=== PATIENT | female | born 1950 | race Caucasian/White ===

== ENCOUNTER 2022-11-27 12:28 | Inpatient (IN) | payer MEDICARE, SELFPAY ==
--- NOTE | ~2022-11-27 | IR_ITS ---
PROCEDURE: PERMACATH PLACEMENT CLINICAL INFORMATION: Renal failure. COMPARISON: None available. TECHNIQUE: Procedure and risks and benefits including bleeding, infection and pneumothorax were discussed with the patient and informed consent was obtained. The right neck and chest and existing right neck temporary dialysis catheter were prepped and draped in usual sterile fashion. All elements of maximal sterile barrier technique followed including use of cap, mask, sterile gown, sterile gloves, a sterile full body drape and hand hygiene. Also followed skin preparation with 2% chlorhexidine for cutaneous antisepsis, and sterile ultrasound preparation with sterile gel and probe cover when applicable. The skin and soft tissues of the right upper chest were anesthetized with 1% lidocaine plain. A small incision was made. A subcutaneous tunnel from the chest to the neck incision was anesthetized with 1% lidocaine plain. Using a tunneler, a 14.5 Mauritian 19 cm in length GlidePath permacath was tunneled from the chest to the neck incision. An 0.035 guidewire was advanced through the existing temporary dialysis catheter into the SVC. Through a peel-away sheath, permacath was advanced centrally. Both ports had good blood return, flushed easily and were instilled with heparin 1.6 mL heparin 100 unit per mL solution. The neck incision was closed using a 3-0 subcuticular absorbable suture. Chest incision was closed using a 3-0 absorbable mattress suture. Conscious sedation was provided by a registered nurse under my direct supervision with 21 minute [id number] contact time. The patient received Versed 0.5 mg and Fentanyl 25 mcg intravenously during the procedure. TOTAL SEDATION TIME: 20 minutes FLUOROSCOPY TIME: 0.2 minutes SAVED FLUOROSCOPIC IMAGE: 1 DAP: 37 cGy-cm2 FINDINGS: There is a right internal jugular dialysis catheter with tip projecting over the cavoatrial junction. IR/IR cvc replace central tunnel IMPRESSION: Right internal jugular 14.5 Mauritian 19 cm in length GlidePath permacath placement.
--- NOTE | ~2022-11-27 | XR_ITS ---
EXAMINATION: XR CHEST CLINICAL INFORMATION: Shortness of breath COMPARISON: None available. TECHNIQUE: 2 views of the chest were obtained. FINDINGS: The cardiopericardial silhouette is enlarged. No evidence of pulmonary edema. There are small bilateral pleural effusions right greater than left. No pneumothorax. XR/XR chest 2V IMPRESSION: Small bilateral pleural effusions right greater than left. Cardiomegaly without pulmonary edema.
--- NOTE | ~2022-11-27 | IR_ITS ---
PROCEDURE: IR INSERTION OF CENTRAL VENOUS CATHETER IR ULTRASOUND-GUIDED VENOUS ACCESS CLINICAL INFORMATION: Renal failure. Permacath fell out. COMPARISON: None available. TECHNIQUE: The procedure, risks and benefits including bleeding, infection and pneumothorax were discussed with the patient and informed consent was obtained. The right neck was prepped and draped in the usual sterile fashion. The skin and soft tissues were anesthetized with 1% lidocaine plain. Using ultrasound guidance and a 5-Namibian micropuncture system, right internal jugular vein access was obtained. Over an .018 wire, a 5-Namibian dilator was positioned in the SVC. An .035 guidewire was advanced through the 5-Namibian dilator into the IVC. Following serial dilatation, a 12-Namibian 13 cm in length triple-lumen Mahurkar dialysis catheter was positioned. The catheter tip is in the SVC. Both ports flushed well, had good blood return and were instilled with heparin 1 mL 1000 unit per mL solution. The triple-lumen catheter was flushed with heparinized saline. Real-time ultrasound guidance was used to document vein patency and for needle entry. A formal ultrasound picture was recorded. 1 saved fluoroscopic image. Fluoroscopy time 0.7 minutes. All elements of maximal sterile barrier technique followed including use of cap, mask, sterile gown, sterile gloves, a sterile full body drape and hand hygiene. Also followed skin preparation with 2% chlorhexidine for cutaneous antisepsis, and sterile ultrasound preparation with sterile gel and probe cover when applicable. FINDINGS: There is a right upper extremity temporary dialysis catheter with tip projecting over the SVC. IR/IR us guide venous access IMPRESSION: Right internal jugular 12-Namibian 13 cm in length triple-lumen Mahurkar dialysis catheter placement.
--- NOTE | ~2022-11-27 | IR_ITS ---
PROCEDURE: IR INSERTION OF CENTRAL VENOUS CATHETER IR ULTRASOUND-GUIDED VENOUS ACCESS CLINICAL INFORMATION: Renal failure. Permacath fell out. COMPARISON: None available. TECHNIQUE: The procedure, risks and benefits including bleeding, infection and pneumothorax were discussed with the patient and informed consent was obtained. The right neck was prepped and draped in the usual sterile fashion. The skin and soft tissues were anesthetized with 1% lidocaine plain. Using ultrasound guidance and a 5-Spanish micropuncture system, right internal jugular vein access was obtained. Over an .018 wire, a 5-Spanish dilator was positioned in the SVC. An .035 guidewire was advanced through the 5-Spanish dilator into the IVC. Following serial dilatation, a 12-Spanish 13 cm in length triple-lumen Mahurkar dialysis catheter was positioned. The catheter tip is in the SVC. Both ports flushed well, had good blood return and were instilled with heparin 1 mL 1000 unit per mL solution. The triple-lumen catheter was flushed with heparinized saline. Real-time ultrasound guidance was used to document vein patency and for needle entry. A formal ultrasound picture was recorded. 1 saved fluoroscopic image. Fluoroscopy time 0.7 minutes. All elements of maximal sterile barrier technique followed including use of cap, mask, sterile gown, sterile gloves, a sterile full body drape and hand hygiene. Also followed skin preparation with 2% chlorhexidine for cutaneous antisepsis, and sterile ultrasound preparation with sterile gel and probe cover when applicable. FINDINGS: There is a right upper extremity temporary dialysis catheter with tip projecting over the SVC. IR/IR cvc insert non tunnel IMPRESSION: Right internal jugular 12-Spanish 13 cm in length triple-lumen Mahurkar dialysis catheter placement.
--- NOTE | 2022-11-27 12:59 | ED_ITS ---
HPI - General Adult General Chief complaint: General Medical Stated complaint: Port needs to be replaced Time Seen by Provider: 11/27/22 14:34 Source: patient and family (patient's daughter) Mode of arrival: wheelchair Limitations: no limitations History of Present Illness HPI narrative: Patient is a 72 year old assigned female at with a history of CKD, HTN, COPD, DM typ 2, and afib on Eliquis, presenting to the emergency department today after her dialysis catheter fell out. Patient states that her dialysis catheter on the right side of her chest fell out late last night, she went to [facility] and they discharged her home. Patient states that she she dialyzes Wednesday, Wednesday, and Wednesday at the dialysis center in [place]. Patient denies any dizziness, lightheadedness, abdominal pain, nausea, vomiting, fever, chills, blurry vision, double vision, loss of vision, chest pain, difficulty breathing, shortness of breath, back pain, night sweats, pain with urination, increased urinary frequency, increased urinary urgency, blood in her urine or stool, syncope or a near syncopal episode, recent trauma or falls, bowel incontinence, bladder incontinence, bowel retention, bladder retention, or any other complaints at this time. Onset (ago): hour(s) Relieving factors: none Exacerbating factors: none Associated symptoms: denies other symptoms Treatments prior to arrival: none Related Data Home Medications Medication Instructions Recorded Confirmed acetaminophen 325 mg tablet 650 mg PO Q4H PRN Pain 11/27/22 11/27/22 albuterol sulfate 2.5 mg/3 mL 2.5 mg inhalation Q6H PRN Wheezing 11/27/22 11/27/22 (0.083 %) solution for nebulization ammonium lactate 12 % topical cream 1 appl topical DAILY 11/27/22 11/27/22 apixaban 2.5 mg tablet (Eliquis) 2.5 mg PO BID 11/27/22 11/27/22 atorvastatin 80 mg tablet 80 mg PO DAILY 11/27/22 11/27/22 calcitriol 0.25 mcg capsule 0.25 mcg PO MOFR 11/27/22 11/27/22 cetirizine 10 mg tablet 10 mg PO DAILY 11/27/22 11/27/22 cholecalciferol (vitamin D3) 25 25 mcg PO DAILY 11/27/22 11/27/22 mcg (1,000 unit) tablet clotrimazole-betamethasone 1 1 appl topical BID PRN BREAST RASH 11/27/22 11/27/22 %-0.05 % topical cream diltiazem HCl 360 mg 360 mg PO DAILY 11/27/22 11/27/22 capsule,extended release 24 hr docusate sodium 100 mg capsule 100 mg PO DAILY 11/27/22 11/27/22 duloxetine 20 mg capsule,delayed 20 mg PO DAILY 11/27/22 11/27/22 release ferrous sulfate 325 mg (65 mg 325 mg PO BID 11/27/22 11/27/22 iron) tablet fluticasone fur. 200 mcg-umeclid 1 ea inhalation DAILY 11/27/22 11/27/22 62.5 mcg-vilant 25 mcg inhalat.powder (Trelegy Ellipta) fluticasone propionate 50 1 spray intranasal DAILY 11/27/22 11/27/22 mcg/actuation nasal spray,suspension furosemide 40 mg tablet 40 mg PO DAILY 11/27/22 11/27/22 furosemide 80 mg tablet 80 mg PO BID PRN WEIGHT GAIN 11/27/22 11/27/22 GREATER THAN 5 POUNDS, TAKE FOR 3 DAYS hydralazine 50 mg tablet 50 mg PO TID 11/27/22 11/27/22 insulin glargine 100 unit/mL (3 20 unit subcut BEDTIME 11/27/22 11/27/22 mL) subcutaneous pen ipratropium 0.5 mg-albuterol 3 mg 3 ml inhalation Q4H 11/27/22 11/27/22 (2.5 mg base)/3 mL nebulization soln metoprolol tartrate 25 mg tablet 25 mg PO BID 11/27/22 11/27/22 naphazoline-glycerin 0.012 %-0.25 1 drp ophthalmic (eye) BID PRN 11/27/22 11/27/22 % eye drops (Clear Eyes Redness REDNESS AND IRRITATION Relief) nystatin 100,000 unit/gram topical 1 appl topical BID-TID 11/27/22 11/27/22 powder sennosides 8.6 mg tablet (senna) 17.2 mg PO DAILY 11/27/22 11/27/22 sevelamer carbonate 800 mg tablet 800 mg PO TID 11/27/22 11/27/22 Allergies Allergy/AdvReac Type Severity Reaction Status Date / Time levofloxacin [From Levaquin] Allergy Anaphylaxis Verified 11/27/22 13:01 Review of Systems Constitutional: Constitutional: Reports no additional constitutional complaints, Denies chills, Denies fever(s) and Denies night sweats Eyes: Eyes: Reports no additional eye complaints, Denies blurry vision, Denies change in vision, Denies diplopia, Denies eye discharge, Denies loss of vision and Denies eye pain ENT: Denies dizziness Cardiovascular: Cardiovascular: Reports no additional cardiovascular complaints, Denies chest pain, Denies lightheadedness, Denies Loss of Consciousness and Denies dyspnea Respiratory: Respiratory: Reports no additional respiratory complaints and Denies dyspnea Gastrointestinal: Gastrointestinal: Reports no additional gastrointestinal complaints, Denies abdominal pain, Denies melena, Denies hematochezia, Denies change in bowel habits and Denies change in stool character Genitourinary: Genitourinary: Denies hematuria, Denies urinary frequency, Denies dysuria, Denies urinary incontinence, Denies urinary hesitancy and Denies urinary urgency Musculoskeletal: Musculoskeletal: Reports no additional musculoskeletal complaints, Denies numbness and Denies tingling Neurologic: Denies dizziness, Denies loss of vision, Denies numbness and Denies tingling Psychiatric: Psychiatric: Reports no additional psychiatric complaints Endocrine: Endocrine: Reports no additional endocrine complaints Hematologic/Lymphatic: Hematologic/Lymphatic: Reports no additional hematologic/lymphatic complaints Allergic/Immunologic: Allergic/Immunologic: Reports no additional allergic/immunologic complaints [facility] Past Medical History Attestation statement: The following information was validated with the patient. (all information validated with the patient's daughter) Source: old records reviewed, obtained from family (patient's daughter), nursing notes reviewed and other (notes from [facility] and assisted living facility reviewd) Social History Social History Advance Directives: No Advance Directives Information Provided: No Physical Exam ED Vital Signs: Vital Signs - 24 hr 11/27/22 13:02 Temperature 97.5 F Pulse Rate 59 Respiratory Rate 18 Blood Pressure 127/57 L Pulse Oximetry 97 BMI result Body Mass Index 34.7 Const General: cooperative, no acute distress, alert and awake Nutritional Appearance: well nourished Orientation/consciousness: patient oriented x3 Limitations: no limitations HENMT Head: Yes normal to inspection and Yes atraumatic Ears: hearing grossly normal bilaterally and external ears normal General nose exam: Normal external nose present, no nasal discharge noted and no epistaxis Face and sinus: Yes normal facial exam, No abrasion and No laceration Mouth: Normal oral and palatal mucosa present, no drooling and no muffled voice Eyes General: appearance normal, both eyes and all related structures Periorbital: periorbital findings normal Eyelids: Yes eyelids normal Conjunctivae: conjunctivae normal Pupils: Equal, round and reactive pupils present EOM: EOMs intact bilaterally Neck Neck: Yes normal visual inspection, Yes full ROM and Yes no lymphadenopathy Chest Other: bandaid present to the right chest, no dialysis catheter visualized Resp Effort & Inspection: normal respiratory effort and able to speak in complete sentences Cardio Rate: regular rate Rhythm: regular rhythm GI Inspection: Yes normal to inspection Neuro General: patient oriented x3 and moves all extremities Cranial nerves: Yes Equal, round and reactive pupils present Cognition (Neuro): normal cognition Motor exam (neuro): 5/5 motor strength present throughout Sensory Exam: Normal double simultaneous stimulation for sensation Coordination: [id number] test normal Extrem General: Yes normal to inspection, Yes full ROM and Yes capillary refill normal Psych Appearance: grossly normal Mental Status: mental status grossly normal Affect: normal affect Attitude: cooperative Thought process: Normal thought process present Thought content: Normal thought content present Insight: Good insight present (Psych) Course Course Course Narrative: RME performed by Cassandra Cabral PA-C. Patient is a 72 year old assigned female at presenting to the emergency department after a dialysis catheter fell out. Patient states that her dialysis catheter fell out last night, she was seen at [facility] last night, and they didn't put anything back in. Patient was supposed to dialyze today. Labs and imaging ordered. Patient placed back in the waiting room pending room availability and results. Medical Decision Making Medical Decision Making MDM Narrative: Patient is a 72 year old assigned female at presenting to the emergency department today for a dialysis catheter that fell out. Patient's physical exam showed a bandaid on the right chest where a dialysis catheter used to be. Patient's blood work was consistent with a chronic CKD patient. Patient's chest x-ray showed no acute process. I spoke to the patient's covering car distributor who recommended the patient have a replacement catheter placed and if it was temporary catheter, she would need to be admitted to the hospital and they would round on her. I spoke with the IR staff who informed me that they would be placing a temporary catheter only because the patient needs to be without Eliquis for 3 days. I spoke with the hospitalist team who agreed to admission. I explained my physical exam findings as well as all test results to the patient and the patient's daughter. I answered all questions asked by the patient and the patient's daughter. Patient and the patient's daughter verbalized agreement and understanding with this treatment plan and admission. Differential Diagnosis Differential Diagnoses: The differential diagnosis associated with the presentation includes dialysis catheter replacement Consult Healthcare Provider Management of the patient was discussed with: Hospitalist (agreed to admission) and Nurse Anesthetist (spoke with IR and nephrology as noted in the MDM portion of this chart) Lab Data [facility] Lab Attestation statement: I reviewed the patient's lab results. 11/27/22 15:41 11/27/22 15:41 Labs: Lab Results 11/27/22 11/27/22 11/27/22 Range/Units 15:41 15:41 15:41 WBC 6.3 (4.8-10.8) X10*3/uL RBC 3.53 L (4.20-5.50) X10*6/uL Hgb 10.4 L (12.0-16.0) g/dl Hct 32.7 L (37.0-47.0) % MCV 92.6 (80.0-98.0) fL MCH 29.5 (27.0-33.0) pg MCHC 31.8 (31.0-35.0) g/dl RDW 16.3 H (11.0-16.0) % Plt Count 155 L (160-400) X10*3/uL MPV 10.3 (9.4-12.3) fL Immature Gran % (Auto) 0.3 (0.0-0.4) % Neut % (Auto) 66.5 (45-73) % Lymph % (Auto) 14.2 L (20-40) % [place] % (Auto) 12.8 H (2-11) % Eos % (Auto) 4.8 H (0-4) % Baso % (Auto) 1.4 (0-2) % Lymph # (Auto) 0.9 L (1.2-4.9) X10*3/uL [place] # (Auto) 0.8 (0.1-1.2) X10*3/uL Eos # (Auto) 0.3 (0.0-0.4) X10*3/uL Baso # (Auto) 0.1 (0.0-0.2) X10*3/uL Abs Immat Gran (auto) 0.02 (0.00-0.03) X10*3/uL Absolute Neuts (auto) 4.2 (2.0-8.3) x10*3/uL Absolute Nucleated RBC 0.000 (0.0-0.012) X10*3/uL Nucleated RBC % (auto) 0.0 (0.0-0.2) /100WBC PT 12.3 (10.0-13.1) SEC INR 1.1 (0.9-1.1) APTT 37.7 H (26.0-36.4) SEC Sodium 139 (135-145) mmol/L Potassium 5.8 H (3.3-5.1) mmol/L Chloride 108 (96-108) mmol/L Carbon Dioxide 20 L (22-29) mmol/L Anion Gap 17 (12-20) BUN 66 H (9-16) mg/dL Creatinine 4.53 H* (0.5-1.4) mg/dL Estim Creat Clear Calc 11.1 Estimated GFR 9 Random Glucose 139 H (60-115) mg/dL Calcium 9.6 (8.4-10.2) mg/dL Magnesium 2.4 (1.6-2.6) mg/dL Total Bilirubin 0.7 (0.0-1.0) mg/dL AST 21 (5-31) U/L ALT 29 (0-31) U/L Alkaline Phosphatase 134 H (39-117) U/L Total Protein 6.1 L (6.5-8.0) g/dL Albumin 4.0 (3.5-5.0) g/dL Independent Interpretation I performed an independent interpretation of an: Plain X-Ray Interpretation: My interpretation is in agreement with the radiologist's impression of this imaging study. EXAMINATION: XR CHEST CLINICAL INFORMATION: Shortness of breath COMPARISON: None available. TECHNIQUE: 2 views of the chest were obtained. FINDINGS: The cardiopericardial silhouette is enlarged. No evidence of pulmonary edema. There are small bilateral pleural effusions right greater than left. No pneumothorax. XR/XR chest 2V IMPRESSION: Small bilateral pleural effusions right greater than left. ? Cardiomegaly without pulmonary edema. Dictated By: Duran Abernathy MD Signed By: Electronically signed by Duran Abernathy MD 11/27/22 6038 Independent Historian Clinical information obtained from an independent historian. History obtained from or confirmed by: Other (patient's daughter) Critical Care Time Critical Care Time Critical Care Time: Yes Total Critical Care Time: 45 Attestation: I spent 45 minutes of Critical Care Time with this patient. This does not include time spent on separately reported billable procedures. Discharge Plan Discharge Clinical Impression: Encounter for dialysis catheter care Patient Disposition: Admitted As Inpatient Prescriptions: No Action furosemide 40 mg tablet 40 mg PO DAILY atorvastatin 80 mg tablet 80 mg PO DAILY sennosides [senna] 8.6 mg tablet 17.2 mg PO DAILY albuterol sulfate 2.5 mg /3 mL (0.083 %) solution for nebulization 2.5 mg inhalation Q6H PRN (Reason: Wheezing) diltiazem HCl 360 mg capsule,extended release 24hr 360 mg PO DAILY hydralazine 50 mg tablet 50 mg PO TID nystatin 100,000 unit/gram powder 1 appl topical BID-TID fluticasone propionate 50 mcg/actuation spray,suspension 1 spray intranasal DAILY calcitriol 0.25 mcg capsule 0.25 mcg PO MOFR metoprolol tartrate 25 mg tablet 25 mg PO BID duloxetine 20 mg capsule,delayed release(DR/EC) 20 mg PO DAILY insulin glargine 100 unit/mL (3 mL) insulin pen 20 unit subcut BEDTIME sevelamer carbonate 800 mg tablet 800 mg PO TID Clear Eyes Redness Relief 0.012-0.25 % drops 1 drp ophthalmic (eye) BID PRN (Reason: REDNESS AND IRRITATION) Eliquis 2.5 mg tablet 2.5 mg PO BID Trelegy Ellipta 200-62.5-25 mcg blister with device 1 ea inhalation DAILY acetaminophen 325 mg Tablet 650 mg PO Q4H PRN (Reason: Pain) ipratropium-albuterol 0.5 mg-3 mg(2.5 mg base)/3 mL solution for nebulization 3 ml inhalation Q4H cetirizine 10 mg Tablet 10 mg PO DAILY furosemide 80 mg tablet 80 mg PO BID PRN (Reason: WEIGHT GAIN GREATER THAN 5 POUNDS, TAKE FOR 3 DAYS) ferrous sulfate 325 mg (65 mg iron) Tablet 325 mg PO BID clotrimazole-betamethasone 1-0.05 % cream 1 appl topical BID PRN (Reason: BREAST RASH) docusate sodium 100 mg Capsule 100 mg PO DAILY ammonium lactate 12 % Cream 1 appl TOPICAL DAILY cholecalciferol (vitamin D3) 25 mcg (1,000 unit) Tablet 25 mcg PO DAILY
[2022-11-27 13:02] VITALS: BP 127/57; PULSE 59; RESP 18; TEMP 36.4; O2SAT 97; BMI 34.7
[2022-11-27 15:46] LABS: MANUAL DIFF FLAG NO
[2022-11-27 15:48] LABS: Basophils Absolute Auto 0.1 X10*3/uL (0.0-0.2); Basophils Percent Auto 1.4 % (0-2); Eosinophils Absolute Auto 0.3 X10*3/uL (0.0-0.4); Eosinophils Percent Auto 4.8 % (0-4); Hematocrit 32.7 % (37.0-47.0); Hemoglobin 10.4 g/dl (12.0-16.0); Imm Gran Abs Auto 0.02 X10*3/uL (0.00-0.03); Imm Gran Pct Auto 0.3 % (0.0-0.4); Lymphocytes Absolute Auto 0.9 X10*3/uL (1.2-4.9); Lymphocytes Percent Auto 14.2 % (20-40); Mean Corpuscular HGB Conc 31.8 g/dl (31.0-35.0); Mean Corpuscular Hemoglobin 29.5 pg (27.0-33.0); Mean Corpuscular Volume 92.6 fL (80.0-98.0); Mean Platelet Volume 10.3 fL (9.4-12.3); Monocytes Absolute Auto 0.8 X10*3/uL (0.1-1.2); Monocytes Percent Auto 12.8 % (2-11); Neutrophils Absolute Auto 4.2 x10*3/uL (2.0-8.3); Neutrophils Percent Auto 66.5 % (45-73); Platelet Count 155 X10*3/uL (160-400); Red Blood Count 3.53 X10*6/uL (4.20-5.50); Red Cell Distribution Width 16.3 % (11.0-16.0); White Blood Count 6.3 X10*3/uL (4.8-10.8)
[2022-11-27 15:56] LABS: INTERNATIONAL NORM RATIO 1.1 (0.9-1.1); Prothrombin Time 12.3 SEC (10.0-13.1)
[2022-11-27 15:59] LABS: Partial Thromboplastin Time 37.7 SEC (26.0-36.4)
[2022-11-27 16:13] LABS: Alanine Aminotransferase 29 U/L (0-31); Alkaline Phosphatase 134 U/L (39-117); Anion Gap 17 (12-20); Aspartate Amino Transferase 21 U/L (5-31); Bilirubin Total 0.7 mg/dL (0.0-1.0); Blood Urea Nitrogen 66 mg/dL (9-16); Calcium 9.6 mg/dL (8.4-10.2); Carbon Dioxide 20 mmol/L (22-29); Chloride 108 mmol/L (96-108); Creatinine Clr Calc Pharmacy 11.1; Estimated Glomerular Filt Rate 9; Glucose Random 139 mg/dL (60-115); Magnesium 2.4 mg/dL (1.6-2.6); Potassium 5.8 mmol/L (3.3-5.1); Sodium 139 mmol/L (135-145); Total Protein 6.1 g/dL (6.5-8.0)
--- NOTE | 2022-11-27 16:38 | PHA.MEDREC ---
Pharmacy Consult ? Medication Reconciliation Pharmacy has completed the medication reconciliation. Patient knows nothing of what she takes, she has a nurse that comes to her house. Patient came with a list of medications. List was last printed on 09/15/22, I used pharmacy claims and the list to compile my reconciliation as it seems that new things have been prescribed since the list was printed.
--- NOTE | 2022-11-27 17:19 | PC.NURSE ---
Patient brought to IR in Xray at 1645 for temporary dialysis catheter placement. Patient ambulates with walker or cane at home. Patient denies any pain, sob with minimal exertion.
--- NOTE | 2022-11-27 19:13 | HO.RADPN ---
RADIOLOGY Narrative Narrative: RIJ 12 fr 13 cm length temporary triple lumen dialysis catheter placed. Tip in SVC. Heparin in both dialysis ports.
--- NOTE | 2022-11-27 20:00 | PM.IMHP ---
History of Present Illness Date of Service: 11/27/22 Chief Complaint: Replacement of dialysis catheter This is a 72-year-old female with pertinent history of ESRD on hemodialysis, essential hypertension, COPD, insulin-dependent diabetes mellitus, atrial fibrillation on Eliquis, mood disorder presents to the emergency department after her dialysis catheter fell out. Patient normally undergoes dialysis Wednesday/Wednesday/Wednesday but missed her dialysis session today as her dialysis catheter fell out last night. Patient denies any complaints at the time of my evaluation. No fever, chills, chest discomfort, palpitations, shortness of breath, changes in urinary or bowel habits. States she is compliant with medications and makes urine. The emergency department, Nephrology was consulted who recommended that patient have a replacement catheter placed. IR placed temporary catheter as patient was on Eliquis which needs to be washed out. Nephrology recommended admission and will dialyze the patient in a.m.. Review of Systems Constitutional: Constitutional: Reports no additional constitutional complaints Cardiovascular: Cardiovascular: Reports no additional cardiovascular complaints Respiratory: Respiratory: Reports no additional respiratory complaints Gastrointestinal: Gastrointestinal: Reports no additional gastrointestinal complaints Genitourinary: Genitourinary: Reports no additional female genitourinary complaints [facility] Medical History Afib COPD (chronic obstructive pulmonary disease) ESRD on hemodialysis Essential hypertension Mixed hyperlipidemia Mood disorder Pertinent family history: No family history of CAD Social History Advance Directives: No Advance Directives Information Provided: No Meds Allergies Allergy/AdvReac Type Severity Reaction Status Date / Time levofloxacin [From Levaquin] Allergy Anaphylaxis Verified 11/27/22 13:01 Active Medications: Current Medications Pharmacy Consult (Consult Rx Perform Med Rec) 1 each MISCELLANE ONCE PRN PRN Reason: Consult order Sodium Chloride (0.9 % Sodium Chloride Flush 3 Ml Syringe) 3 ml IVFLUSH [facility] Home Medications Medication Instructions Recorded Confirmed Last Taken Type acetaminophen 325 mg tablet 650 mg PO Q4H PRN Pain 11/27/22 11/27/22 Unknown History albuterol sulfate 2.5 mg/3 mL 2.5 mg inhalation Q6H PRN Wheezing 11/27/22 11/27/22 Unknown History (0.083 %) solution for nebulization ammonium lactate 12 % topical cream 1 appl topical DAILY 11/27/22 11/27/22 Unknown History apixaban 2.5 mg tablet (Eliquis) 2.5 mg PO BID 11/27/22 11/27/22 Unknown History atorvastatin 80 mg tablet 80 mg PO DAILY 11/27/22 11/27/22 Unknown History calcitriol 0.25 mcg capsule 0.25 mcg PO MOFR 11/27/22 11/27/22 Unknown History cetirizine 10 mg tablet 10 mg PO DAILY 11/27/22 11/27/22 Unknown History cholecalciferol (vitamin D3) 25 25 mcg PO DAILY 11/27/22 11/27/22 Unknown History mcg (1,000 unit) tablet clotrimazole-betamethasone 1 1 appl topical BID PRN BREAST RASH 11/27/22 11/27/22 Unknown History %-0.05 % topical cream diltiazem HCl 360 mg 360 mg PO DAILY 11/27/22 11/27/22 Unknown History capsule,extended release 24 hr docusate sodium 100 mg capsule 100 mg PO DAILY 11/27/22 11/27/22 Unknown History duloxetine 20 mg capsule,delayed 20 mg PO DAILY 11/27/22 11/27/22 Unknown History release ferrous sulfate 325 mg (65 mg 325 mg PO BID 11/27/22 11/27/22 Unknown History iron) tablet fluticasone fur. 200 mcg-umeclid 1 ea inhalation DAILY 11/27/22 11/27/22 Unknown History 62.5 mcg-vilant 25 mcg inhalat.powder (Trelegy Ellipta) fluticasone propionate 50 1 spray intranasal DAILY 11/27/22 11/27/22 Unknown History mcg/actuation nasal spray,suspension furosemide 40 mg tablet 40 mg PO DAILY 11/27/22 11/27/22 Unknown History furosemide 80 mg tablet 80 mg PO BID PRN WEIGHT GAIN 11/27/22 11/27/22 Unknown History GREATER THAN 5 POUNDS, TAKE FOR 3 DAYS hydralazine 50 mg tablet 50 mg PO TID 11/27/22 11/27/22 Unknown History insulin glargine 100 unit/mL (3 20 unit subcut BEDTIME 11/27/22 11/27/22 Unknown History mL) subcutaneous pen ipratropium 0.5 mg-albuterol 3 mg 3 ml inhalation Q4H 11/27/22 11/27/22 Unknown History (2.5 mg base)/3 mL nebulization soln metoprolol tartrate 25 mg tablet 25 mg PO BID 11/27/22 11/27/22 Unknown History naphazoline-glycerin 0.012 %-0.25 1 drp ophthalmic (eye) BID PRN 11/27/22 11/27/22 Unknown History % eye drops (Clear Eyes Redness REDNESS AND IRRITATION Relief) nystatin 100,000 unit/gram topical 1 appl topical BID-TID 11/27/22 11/27/22 Unknown History powder sennosides 8.6 mg tablet (senna) 17.2 mg PO DAILY 11/27/22 11/27/22 Unknown History sevelamer carbonate 800 mg tablet 800 mg PO TID 11/27/22 11/27/22 Unknown History Physical Exam Vital Signs and Narrative: Vital Signs: Last Vital Signs Temp 97.5 F 11/27/22 13:02 Pulse 59 11/27/22 13:02 Resp 18 11/27/22 13:02 BP 127/57 L 11/27/22 13:02 Pulse Ox 97 11/27/22 13:02 BMI result Body Mass Index 34.7 Middle-aged female lying in bed in no distress Neck supple, no JVD, temporary non-tunneled catheter Regular rate and rhythm, S1-S2 heard Decreased breath sounds at bases Abdomen soft nontender, no guarding, no rigidity Patient is awake, alert and oriented to self, place, time and person ; no focal motor deficit Psych: Normal mood No pedal edema Results Labs 11/27/22 15:41 11/27/22 15:41 Labs: Laboratory Results - last 24 hr 11/27/22 11/27/22 11/27/22 15:41 15:41 15:41 MCV 92.6 MCH 29.5 MCHC 31.8 RDW 16.3 H Plt Count 155 L MPV 10.3 Immature Gran % (Auto) 0.3 Neut % (Auto) 66.5 Lymph % (Auto) 14.2 L [place] % (Auto) 12.8 H Eos % (Auto) 4.8 H Baso % (Auto) 1.4 Lymph # (Auto) 0.9 L [place] # (Auto) 0.8 Eos # (Auto) 0.3 Baso # (Auto) 0.1 Abs Immat Gran (auto) 0.02 Absolute Neuts (auto) 4.2 Absolute Nucleated RBC 0.000 Nucleated RBC % (auto) 0.0 PT 12.3 INR 1.1 APTT 37.7 H Anion Gap 17 Estim Creat Clear Calc 11.1 Estimated GFR 9 Random Glucose 139 H Calcium 9.6 Magnesium 2.4 Total Bilirubin 0.7 AST 21 ALT 29 Alkaline Phosphatase 134 H Total Protein 6.1 L Albumin 4.0 Imaging Radiologist's Impressions: Impressions Chest X-Ray 11/27/22 13:14 IMPRESSION: Small bilateral pleural effusions right greater than left. Cardiomegaly without pulmonary edema. Assessment and Plan (1) Encounter for dialysis catheter care: Status: Acute Plan This is a 72-year-old female with pertinent history of ESRD on hemodialysis, essential hypertension, COPD, insulin-dependent diabetes mellitus, atrial fibrillation on Eliquis, mood disorder presents to the emergency department after her dialysis catheter fell out. #. Encounter for replacement of dialysis catheter: Nephrology was consulted from the ER who recommended admission. IR placed a temporary catheter as waiting for Eliquis washout. Patient missed her dialysis session today, consulting Nephrology for possible dialysis session tomorrow #. Hyperkalemia as she missed hemodialysis session: Temporizing measures given in the ER. Also ordered IV Lasix and Lokelma. #. Anemia of chronic kidney disease #. Hyperparathyroidism due to kidney disease: Continue calcitriol and sevelamer #. COPD: Not on home oxygen. No exacerbation during admission. Continue home inhalers #. Essential hypertension: Continue home antihypertensives #. Atrial fibrillation: Continue beta-indira. Holding Eliquis for permanent catheter placement #. Insulin-dependent diabetes mellitus: Reduce home basal regimen, initiating Accu-Cheks sliding scale insulin #. Mood disorder: Continue Cymbalta DVT prophylaxis: Mechanical. Holding Eliquis Low-salt diet Full code Admit as inpatient for hemodialysis session tomorrow. Will likely stay for 2 midnights for Eliquis washout and placement of permanent dialysis catheter Time Spent With Patient Time: Total time managing care of this patient today ____ minutes. Quality Stroke Does the patient have a stroke diagnosis?: No VTE Prior VTE?: No VTE Risk Level:: Medical - moderate - high VTE Device Contraindication: N/A - Device Ordered VTE Drug Contraindication: Treatment Not Indicated
--- NOTE | 2022-11-27 20:30 | PC.NURSE ---
assumed care of pt aox3 no apparent distress, no respiratory distress resting quietly line flushed -patent
[2022-11-27] MEDS: Furosemide 100 MG/10 ML VIAL 80 MG IVPUSH (20:56)
[2022-11-27 20:57] VITALS: BP 143/68
[2022-11-27] MEDS: hydrALAZINE HCl 50 MG TABLET PO (20:58)
[2022-11-27] MEDS: Metoprolol Tartrate 25 MG TABLET PO (20:58)
[2022-11-27] MEDS: Ferrous Sulfate 324 MG TABLET.DR PO (20:58)
[2022-11-27 21:26] VITALS: BP 93/57; PULSE 57; RESP 16; TEMP 36.6; O2SAT 100
[2022-11-27 21:36] LABS: Glucose, Whole Blood 122 mg/dL (60-115)
--- NOTE | 2022-11-27 21:57 | MHC.EDTECH ---
PT WAS ASSISTED TO WALK TO BATHROOM WITH WALKER ,VOID THEN BACK TO BED .
[2022-11-27] MEDS: Calcium Gluconate/NaCl,Iso-Osm 2 GM/100 ML PLAST..BAG IV (22:29)
[2022-11-27] MEDS: Sodium Zirconium Cyclosilicate 5 GM POWD.PACK PO (22:34)
[2022-11-27] MEDS: Insulin Glargine,Hum.rec.anlog 100 UNIT/ML 10 ML VIAL 15 UNIT SUBCUT (22:55)
[2022-11-27] MEDS: Albuterol/Iprat 2.5/0.5MG 3 ML AMPUL.NEB INHALE (23:01)
[2022-11-27 23:02] VITALS: PULSE 55; RESP 17; O2SAT 96
--- NOTE | 2022-11-27 23:23 | PC.NURSE ---
no respiratory distress resting quietly
[2022-11-27] MEDS: Sevelamer Carbonate Tablet 800 MG TABLET PO (23:46)
[2022-11-27] MEDS: calcitrioL 0.25 MCG CAPSULE PO (23:46)
[2022-11-27] MEDS: 0.9 % Sodium Chloride Flush 3 ML SYRINGE IVFLUSH (23:48)
[2022-11-27] MEDS: Melatonin 3 MG TABLET 6 MG PO (23:53)
[2022-11-27] MEDS: Acetaminophen 325 MG TABLET 650 MG PO (23:54)
[2022-11-27 23:59] VITALS: BP 148/63; PULSE 64; RESP 16; TEMP 36.5; O2SAT 100
[2022-11-28] VITALS (9 sets, daily range): BP systolic 126–168; BP diastolic 60–74; PULSE 51–77; RESP 17–28; TEMP 36–36.7; O2SAT 95–100
--- NOTE | 2022-11-28 00:03 | MHC.EDTECH ---
0000 ROUNDING AND VITALS SIGN TAKEN ,PT WAS BOOSTED UP IN BED ,PT RESTING QUIETLY IN BED .
--- NOTE | 2022-11-28 02:19 | MHC.EDTECH ---
pt up to bedside commode void then back to bed .
[2022-11-28] MEDS: Albuterol/Iprat 2.5/0.5MG 3 ML AMPUL.NEB INHALE ×4 (03:42→18:47)
[2022-11-28 07:39] LABS: Glucose, Whole Blood 132 mg/dL (60-115)
[2022-11-28 07:47] LABS: MANUAL DIFF FLAG NO
[2022-11-28 07:53] LABS: Basophils Absolute Auto 0.1 X10*3/uL (0.0-0.2); Basophils Percent Auto 1.1 % (0-2); Eosinophils Absolute Auto 0.2 X10*3/uL (0.0-0.4); Eosinophils Percent Auto 4.2 % (0-4); Hematocrit 32.4 % (37.0-47.0); Hemoglobin 10.4 g/dl (12.0-16.0); Imm Gran Abs Auto 0.02 X10*3/uL (0.00-0.03); Imm Gran Pct Auto 0.4 % (0.0-0.4); Lymphocytes Absolute Auto 0.8 X10*3/uL (1.2-4.9); Lymphocytes Percent Auto 14.3 % (20-40); Mean Corpuscular HGB Conc 32.1 g/dl (31.0-35.0); Mean Corpuscular Hemoglobin 29.7 pg (27.0-33.0); Mean Corpuscular Volume 92.6 fL (80.0-98.0); Mean Platelet Volume 10.4 fL (9.4-12.3); Monocytes Absolute Auto 0.6 X10*3/uL (0.1-1.2); Monocytes Percent Auto 10.6 % (2-11); Neutrophils Absolute Auto 3.8 x10*3/uL (2.0-8.3); Neutrophils Percent Auto 69.4 % (45-73); Platelet Count 132 X10*3/uL (160-400); Red Cell Distribution Width 16.2 % (11.0-16.0); White Blood Count 5.5 X10*3/uL (4.8-10.8)
[2022-11-28 08:21] LABS: Anion Gap 17 (12-20); Blood Urea Nitrogen 67 mg/dL (9-16); Calcium 9.6 mg/dL (8.4-10.2); Carbon Dioxide 17 mmol/L (22-29); Chloride 110 mmol/L (96-108); Creatinine Clr Calc Pharmacy 10.7; Estimated Glomerular Filt Rate 9; Glucose Random 127 mg/dL (60-115); Potassium 5.3 mmol/L (3.3-5.1); Sodium 139 mmol/L (135-145)
[2022-11-28] MEDS: hydrALAZINE HCl 50 MG TABLET PO ×3 (08:38→20:30)
[2022-11-28] MEDS: Ferrous Sulfate 324 MG TABLET.DR PO ×2 (08:38→20:30)
[2022-11-28] MEDS: Atorvastatin Calcium 80 MG TABLET PO (08:38)
[2022-11-28] MEDS: DULoxetine HCl 20 MG CAPSULE.DR PO (08:38)
[2022-11-28] MEDS: dilTIAZem HCL CD 180 MG CAP.ER.24H 360 MG PO (08:38)
[2022-11-28] MEDS: 0.9 % Sodium Chloride Flush 3 ML SYRINGE IVFLUSH ×3 (08:39→20:31)
[2022-11-28] MEDS: Metoprolol Tartrate 25 MG TABLET PO ×2 (08:39→20:30)
[2022-11-28] MEDS: Cholecalciferol (Vitamin D3) 25 MCG TABLET PO (08:39)
[2022-11-28] MEDS: Loratadine 10 MG TABLET PO (08:39)
[2022-11-28] MEDS: Docusate Sodium 100 MG CAPSULE PO (08:42)
[2022-11-28] MEDS: Furosemide 40 MG TABLET PO (08:51)
[2022-11-28] MEDS: Sennosides 8.6 MG TABLET 17.2 MG PO (08:52)
[2022-11-28] MEDS: Sevelamer Carbonate Tablet 800 MG TABLET PO ×3 (08:52→20:30)
--- NOTE | 2022-11-28 10:49 | MHC.CM.PN ---
pt from [facility] pt goes to [facility] mon wed and wed via [facility] transportion dc plan to resume same
--- NOTE | 2022-11-28 15:39 | P.PNIM_ITS ---
Subjective Subjective Date of Service: 11/28/22 Interval History: No acute issues with temporary catheter; HD today without issue Review of Systems Denies chest pain Denies shortness of breath Denies nausea vomiting diarrhea Denies fever chills Physical Exam Vital Signs: Vital Signs: Last Vital Signs Temp 96.8 F 11/28/22 07:20 Pulse 75 11/28/22 08:09 Resp 20 11/28/22 08:09 BP 140/67 H 11/28/22 07:20 Pulse Ox 98 11/28/22 07:20 O2 Del Method Room Air 11/28/22 07:20 BMI result Body Mass Index 34.7 Const: Other: Awake alert no acute distress Neck: Other: Right-sided temporary HD catheter site clean dry and intact Resp: Other: Clear to auscultation bilaterally no rales rhonchi or wheezes Cardio: Other: No S4; positive S1-S2; no S3 murmurs rubs or gallops GI: Other: Soft nontender nondistended normoactive bowel sounds Extrem: Other: No edema bilaterally Objective Data Active Medications Acetaminophen (Acetaminophen 325 Mg Tablet) 650 mg PO Q6H PRN PRN Reason: Pain, Mild (Pain Scale 1-3) Last Admin: 11/27/22 23:54 Dose: 650 mg Documented By: ARLYN Albuterol Sulfate (Albuterol Sulfate (0.083%) 2.5 Mg/3 Ml Vial.Neb) 2.5 mg INHALE RQ6H PRN PRN Reason: Wheezing Albuterol/Ipratropium (Albuterol/Iprat 2.5/0.5mg 3 Ml Ampul.Neb) 3 ml INHALE RQ4H [facility] Last Admin: 11/28/22 15:38 Dose: 3 ml Documented By: MONIE Artificial Tears (Artificial Tears 15 Ml Drops) 1 drop EYE-BOTH BID PRN PRN Reason: REDNESS AND IRRITATION Atorvastatin Calcium (Atorvastatin Calcium 80 Mg Tablet) 80 mg PO DAILY [facility] Last Admin: 11/28/22 08:38 Dose: 80 mg Documented By: ALOK Calcitriol (Calcitriol 0.25 Mcg Capsule) 0.25 mcg PO MOFR [facility] Last Admin: 11/27/22 23:46 Dose: 0.25 mcg Documented By: ARLYN Clotrimazole (Clotrimazole 1 % Cream 15 Gm Tube) 1 appl TOPICAL BID PRN PRN Reason: BREAST RASH Diltiazem HCl (Diltiazem Hcl Cd 180 Mg Cap.Er.24h) 360 mg PO DAILY [facility]; Protocol Last Admin: 11/28/22 08:38 Dose: 360 mg Documented By: ALOK Docusate Sodium (Docusate Sodium 100 Mg Capsule) 100 mg PO DAILY [facility] Last Admin: 11/28/22 08:42 Dose: 100 mg Documented By: ALOK Duloxetine HCl (Duloxetine Hcl 20 Mg Capsule.) 20 mg PO DAILY [facility] Last Admin: 11/28/22 08:38 Dose: 20 mg Documented By: ALOK Ferrous Sulfate (Ferrous Sulfate 324 Mg Tablet.) 324 mg PO BID [facility] Last Admin: 11/28/22 08:38 Dose: 324 mg Documented By: ALOK Fluticasone Propionate (Fluticasone Propionate Nasal 16 Gm [place]) 1 spray NOSTRIL-B DAILY [facility] Last Admin: 11/28/22 10:20 Dose: Not Given Documented By: ALOK Non-Admin Reason: Off unit: Dialysis Fluticasone/Vilanterol (Fluticasone/Vilanterol 200/25 Blst.W.Dev) 1 puff INHALE RDAILY [facility] Last Admin: 11/28/22 10:21 Dose: Not Given Documented By: ALOK Non-Admin Reason: Off unit: Dialysis Furosemide (Furosemide 40 Mg Tablet) 40 mg PO DAILY [facility]; Protocol Last Admin: 11/28/22 08:51 Dose: 40 mg Documented By: ALOK Glucose (Glucose Gel 15 Gm Gel..Gram.) 15 gm PO Q15M PRN; Protocol PRN Reason: per Hypoglycemia Standing Ord. Hydralazine HCl (Hydralazine Hcl 50 Mg Tablet) 50 mg PO TID [facility]; Protocol Last Admin: 11/28/22 08:38 Dose: 50 mg Documented By: ALOK Dextrose (D10) 250 mls @ 750 mls/hr IV Q15M PRN; Protocol PRN Reason: per Hypoglycemia Standing Ord. Insulin Glargine (Insulin Glargine,Hum.Rec.Anlog 100 Unit/Ml 10 Ml Vial) 15 unit SUBCUT BEDTIME [facility] Last Admin: 11/27/22 22:55 Dose: 15 unit Documented By: MARSHALL Insulin Human Lispro (Insulin Lispro 100 Unit/Ml 3 Ml Vial) 0 unit SUBCUT QIDACHS [facility]; Protocol Last Admin: 11/28/22 11:42 Dose: Not Given Documented By: ALOK Non-Admin Reason: Off unit: Dialysis Lactic Acid (Ammonium Lactate 12 % Cream 140 Gm Tube) 1 appl TOPICAL DAILY [facility]; Protocol Last Admin: 11/28/22 10:20 Dose: Not Given Documented By: ALOK Non-Admin Reason: Off unit: Dialysis Loratadine (Loratadine 10 Mg Tablet) 10 mg PO DAILY [facility] Last Admin: 11/28/22 08:39 Dose: 10 mg Documented By: ALOK Melatonin (Melatonin 3 Mg Tablet) 6 mg PO BEDTIME PRN PRN Reason: Insomnia Last Admin: 11/27/22 23:53 Dose: 6 mg Documented By: ARLYN Metoprolol Tartrate (Metoprolol Tartrate 25 Mg Tablet) 25 mg PO BID [facility]; Protocol Last Admin: 11/28/22 08:39 Dose: 25 mg Documented By: ALOK Nystatin (Nystatin Powder 15 Gm Bottle) 1 appl TOPICAL TID [facility]; Protocol Last Admin: 11/28/22 10:21 Dose: Not Given Documented By: ALOK Non-Rhea Reason: Off unit: Dialysis Ondansetron HCl (Ondansetron Hcl 4 Mg/2 Ml Vial) 4 mg IVPUSH Q8H PRN PRN Reason: Nausea and Vomiting Pharmacy Consult (Consult Rx Perform Med Rec) 1 each MISCELLANE ONCE PRN PRN Reason: Consult order Senna (Sennosides 8.6 Mg Tablet) 17.2 mg PO DAILY [facility] Last Admin: 11/28/22 08:52 Dose: 17.2 mg Documented By: ALOK Sevelamer Carbonate (Sevelamer Carbonate Tablet 800 Mg Tablet) 800 mg PO TID [facility] Last Admin: 11/28/22 08:52 Dose: 800 mg Documented By: ALOK Sodium Chloride (0.9 % Sodium Chloride Flush 3 Ml Syringe) [facility] Last Admin: 11/28/22 08:39 Dose: 3 ml Documented By: ALOK Tiotropium [place] (Tiotropium [place] 18 Mcg Cap.W.Dev) 1 puff INHALE RDAILY [facility] Last Admin: 11/28/22 10:20 Dose: Not Given Documented By: ALOK Non-Admin Reason: Off unit: Dialysis Vitamin D (Cholecalciferol (Vitamin D3) 25 Mcg Tablet) 25 mcg PO DAILY [facility] Last Admin: 11/28/22 08:39 Dose: 25 mcg Documented By: ALOK Labs 11/28/22 07:28 11/28/22 06:55 Labs: Laboratory Results - last 24 hr 11/27/22 11/27/22 11/27/22 15:41 15:41 15:41 MCV 92.6 MCH 29.5 MCHC 31.8 RDW 16.3 H Plt Count 155 L MPV 10.3 Immature Gran % (Auto) 0.3 Neut % (Auto) 66.5 Lymph % (Auto) 14.2 L [place] % (Auto) 12.8 H Eos % (Auto) 4.8 H Baso % (Auto) 1.4 Lymph # (Auto) 0.9 L [place] # (Auto) 0.8 Eos # (Auto) 0.3 Baso # (Auto) 0.1 Abs Immat Gran (auto) 0.02 Absolute Neuts (auto) 4.2 Absolute Nucleated RBC 0.000 Nucleated RBC % (auto) 0.0 PT 12.3 INR 1.1 APTT 37.7 H Anion Gap 17 Estim Creat Clear Calc 11.1 Estimated GFR 9 POC Glucose Random Glucose 139 H Calcium 9.6 Magnesium 2.4 Total Bilirubin 0.7 AST 21 ALT 29 Alkaline Phosphatase 134 H Total Protein 6.1 L Albumin 4.0 11/27/22 11/28/22 11/28/22 21:21 06:55 07:20 MCV MCH MCHC RDW Plt Count MPV Immature Gran % (Auto) Neut % (Auto) Lymph % (Auto) [place] % (Auto) Eos % (Auto) Baso % (Auto) Lymph # (Auto) [place] # (Auto) Eos # (Auto) Baso # (Auto) Abs Immat Gran (auto) Absolute Neuts (auto) Absolute Nucleated RBC Nucleated RBC % (auto) PT INR APTT Anion Gap 17 Estim Creat Clear Calc 10.7 Estimated GFR 9 POC Glucose 122 H 132 H Random Glucose 127 H Calcium 9.6 Magnesium Total Bilirubin AST ALT Alkaline Phosphatase Total Protein Albumin 11/28/22 07:28 MCV 92.6 MCH 29.7 MCHC 32.1 RDW 16.2 H Plt Count 132 L MPV 10.4 Immature Gran % (Auto) 0.4 Neut % (Auto) 69.4 Lymph % (Auto) 14.3 L [place] % (Auto) 10.6 Eos % (Auto) 4.2 H Baso % (Auto) 1.1 Lymph # (Auto) 0.8 L [place] # (Auto) 0.6 Eos # (Auto) 0.2 Baso # (Auto) 0.1 Abs Immat Gran (auto) 0.02 Absolute Neuts (auto) 3.8 Absolute Nucleated RBC 0.000 Nucleated RBC % (auto) 0.0 PT INR APTT Anion Gap Estim Creat Clear Calc Estimated GFR POC Glucose Random Glucose Calcium Magnesium Total Bilirubin AST ALT Alkaline Phosphatase Total Protein Albumin Assessment and Plan (1) Encounter for dialysis catheter care: Status: Acute (2) Essential hypertension: Status: Acute (3) ESRD on hemodialysis: Status: Acute Plan This is a 72-year-old female with pertinent history of ESRD on hemodialysis, essential hypertension, COPD, insulin-dependent diabetes mellitus, atrial fibrillation on Eliquis, mood disorder presents to the emergency department after her dialysis catheter fell out. 1. Encounter for replacement of dialysis catheter -temporary cath placed by IR; HD without issues this a.m. -continue to hold Eliquis -tunneled cath 11/30/2022 in IR 2.Hyperkalemia -resolved with HD this morning -follow renals/divalents - HD 11/30(due) 3.ESRD on HD -continue calcitriol and sevelamer -as per Renal 4.Essential hypertension -acceptable control on current therapies -adjust as indicated 5.Atrial fibrillation -rate control adequate -continue to hold Eliquis depending tunneled catheter placement 6.Insulin-dependent diabetes mellitus -acceptable control on lispro correctional scale/basal insulin -adjust as indicated Boots Full code Patient will require ongoing hospitalization pending tunnel catheter placement on Wednesday. Cannot be discharge with temporary line Time Spent With Patient Time: Total time managing care of this patient today ____ minutes. Quality Stroke Does the patient have a stroke diagnosis?: No VTE Prior VTE?: No VTE Risk Level:: Medical - moderate - high VTE Device Contraindication: N/A - Device Ordered VTE Drug Contraindication: Treatment Not Indicated
[2022-11-28 17:05] LABS: Glucose, Whole Blood 110 mg/dL (60-115)
[2022-11-28 20:12] LABS: Glucose, Whole Blood 173 mg/dL (60-115)
[2022-11-28] MEDS: Insulin Glargine,Hum.rec.anlog 100 UNIT/ML 10 ML VIAL 15 UNIT SUBCUT (20:30)
[2022-11-28] MEDS: Nystatin Powder 15 GM BOTTLE 1 APPL TOPICAL (20:30)
[2022-11-28] MEDS: Insulin Lispro 100 UNIT/ML 3 ML VIAL SUBCUT (20:31)
[2022-11-29] VITALS (8 sets, daily range): BP systolic 118–134; BP diastolic 58–61; PULSE 47–65; RESP 16–22; TEMP 36.6–36.9; O2SAT 93–99
[2022-11-29] MEDS: Melatonin 3 MG TABLET 6 MG PO (01:22)
[2022-11-29] MEDS: Albuterol/Iprat 2.5/0.5MG 3 ML AMPUL.NEB INHALE ×4 (03:35→19:34)
[2022-11-29] MEDS: Acetaminophen 325 MG TABLET 650 MG PO (04:01)
[2022-11-29 07:10] LABS: COVID-19 Test Negative (Negative); IDNOW Serial# BCCEAD1C
[2022-11-29 07:32] LABS: Glucose, Whole Blood 97 mg/dL (60-115)
[2022-11-29] MEDS: 0.9 % Sodium Chloride Flush 3 ML SYRINGE IVFLUSH ×3 (08:33→20:45)
[2022-11-29] MEDS: dilTIAZem HCL CD 180 MG CAP.ER.24H 360 MG PO (08:33)
[2022-11-29] MEDS: Ferrous Sulfate 324 MG TABLET.DR PO ×2 (08:33→20:45)
[2022-11-29] MEDS: Sennosides 8.6 MG TABLET 17.2 MG PO (08:34)
[2022-11-29] MEDS: DULoxetine HCl 20 MG CAPSULE.DR PO (08:34)
[2022-11-29] MEDS: Cholecalciferol (Vitamin D3) 25 MCG TABLET PO (08:34)
[2022-11-29] MEDS: Docusate Sodium 100 MG CAPSULE PO (08:34)
[2022-11-29] MEDS: Loratadine 10 MG TABLET PO (08:35)
[2022-11-29] MEDS: Atorvastatin Calcium 80 MG TABLET PO (08:35)
[2022-11-29] MEDS: hydrALAZINE HCl 50 MG TABLET PO ×3 (08:35→20:45)
[2022-11-29] MEDS: Nystatin Powder 15 GM BOTTLE 1 APPL TOPICAL (08:35)
[2022-11-29] MEDS: Furosemide 40 MG TABLET PO (08:35)
[2022-11-29] MEDS: Sevelamer Carbonate Tablet 800 MG TABLET PO ×3 (08:35→20:45)
[2022-11-29] MEDS: Metoprolol Tartrate 25 MG TABLET PO ×2 (08:35→20:45)
[2022-11-29] MEDS: Ammonium Lactate 12 % Cream 140 GM TUBE 1 APPL TOPICAL (10:24)
[2022-11-29] MEDS: Fluticasone Propionate Nasal 16 GM SPRAY 1 SPRAY NOSTRIL-B (10:25)
[2022-11-29 11:34] LABS: Glucose, Whole Blood 183 mg/dL (60-115)
--- NOTE | 2022-11-29 11:58 | P.PNIM_ITS ---
Subjective Subjective Date of Service: 11/29/22 Interval History: Seen and evaluated this morning Feels little better after dialysis session Temp dialysis cath in place no other overnight events Review of Systems Review of Systems: Yes all other systems are reviewed and are negative Physical Exam Vital Signs: Vital Signs: Last Vital Signs Temp 97.8 F 11/29/22 07:26 Pulse 63 11/29/22 08:31 Resp 16 11/29/22 07:44 BP 134/61 11/29/22 07:26 Pulse Ox 99 11/29/22 07:26 O2 Del Method Nasal Cannula 11/29/22 07:26 O2 Flow Rate 2 11/29/22 07:26 BMI result Body Mass Index 34.7 Const: Other: Constitutional : Awake, interactive, not in distress Neck : Normal inspection, Supple, temp dialysis cath in place with no erythema or tenderness Cardiovascular : RRR, no JVP, trace lower extremity edema Respiratory : good bilateral air entry, no crackles, wheezes or rhonchi Gastrointestinal: soft, lax, Normal bowel sounds, Non tender Skin : Warm, Dry Neurological : Alert & oriented x3, No focal deficit Objective Data Active Medications Acetaminophen (Acetaminophen 325 Mg Tablet) 650 mg PO Q6H PRN PRN Reason: Pain, Mild (Pain Scale 1-3) Last Admin: 11/29/22 04:01 Dose: 650 mg Documented By: MARINO Albuterol Sulfate (Albuterol Sulfate (0.083%) 2.5 Mg/3 Ml Vial.Neb) 2.5 mg INHALE RQ6H PRN PRN Reason: Wheezing Albuterol/Ipratropium (Albuterol/Iprat 2.5/0.5mg 3 Ml Ampul.Neb) 3 ml INHALE RQ4H [facility] Last Admin: 11/29/22 11:24 Dose: Not Given Documented By: MONIE Non-Admin Reason: Patient Asleep Artificial Tears (Artificial Tears 15 Ml Drops) 1 drop EYE-BOTH BID PRN PRN Reason: REDNESS AND IRRITATION Atorvastatin Calcium (Atorvastatin Calcium 80 Mg Tablet) 80 mg PO DAILY [facility] Last Admin: 11/29/22 08:35 Dose: 80 mg Documented By: DMITRI Calcitriol (Calcitriol 0.25 Mcg Capsule) 0.25 mcg PO MOFR [facility] Last Admin: 11/27/22 23:46 Dose: 0.25 mcg Documented By: ARLYN Clotrimazole (Clotrimazole 1 % Cream 15 Gm Tube) 1 appl TOPICAL BID PRN PRN Reason: BREAST RASH Diltiazem HCl (Diltiazem Hcl Cd 180 Mg Cap.Er.24h) 360 mg PO DAILY [facility]; Protocol Last Admin: 11/29/22 08:33 Dose: 360 mg Documented By: DMITRI Docusate Sodium (Docusate Sodium 100 Mg Capsule) 100 mg PO DAILY [facility] Last Admin: 11/29/22 08:34 Dose: 100 mg Documented By: DMITRI Duloxetine HCl (Duloxetine Hcl 20 Mg Capsule.) 20 mg PO DAILY [facility] Last Admin: 11/29/22 08:34 Dose: 20 mg Documented By: DMITRI Ferrous Sulfate (Ferrous Sulfate 324 Mg Tablet.) 324 mg PO BID [facility] Last Admin: 11/29/22 08:33 Dose: 324 mg Documented By: DMITRI Fluticasone Propionate (Fluticasone Propionate Nasal 16 Gm [place]) 1 spray NOS TRIL-B DAILY [facility] Last Admin: 11/29/22 10:25 Dose: 1 spray Documented By: DMITRI Fluticasone/Vilanterol (Fluticasone/Vilanterol 200/25 Blst.W.Dev) 1 puff INHALE RDAILY [facility] Last Admin: 11/29/22 11:23 Dose: Not Given Documented By: MONIE Non-Admin Reason: Med Not Available Furosemide (Furosemide 40 Mg Tablet) 40 mg PO DAILY [facility]; Protocol Last Admin: 11/29/22 08:35 Dose: 40 mg Documented By: DMITRI Glucose (Glucose Gel 15 Gm Gel..Gram.) 15 gm PO Q15M PRN; Protocol PRN Reason: per Hypoglycemia Standing Ord. Hydralazine HCl (Hydralazine Hcl 50 Mg Tablet) 50 mg PO TID [facility]; Protocol Last Admin: 11/29/22 08:35 Dose: 50 mg Documented By: DMITRI Dextrose (D10) 250 mls @ 750 mls/hr IV Q15M PRN; Protocol PRN Reason: per Hypoglycemia Standing Ord. Insulin Glargine (Insulin Glargine,Hum.Rec.Anlog 100 Unit/Ml 10 Ml Vial) 15 unit SUBCUT BEDTIME [facility] Last Admin: 11/28/22 20:30 Dose: 15 unit Documented By: MARINO Insulin Human Lispro (Insulin Lispro 100 Unit/Ml 3 Ml Vial) 0 unit SUBCUT QIDACHS [facility]; Protocol Last Admin: 11/29/22 11:56 Dose: Not Given Documented By: DMITRI Non-Admin Reason: Patient Refused Lactic Acid (Ammonium Lactate 12 % Cream 140 Gm Tube) 1 appl TOPICAL DAILY [facility]; Protocol Last Admin: 11/29/22 10:24 Dose: 1 appl Documented By: DMITRI Loratadine (Loratadine 10 Mg Tablet) 10 mg PO DAILY [facility] Last Admin: 11/29/22 08:35 Dose: 10 mg Documented By: DMITRI Melatonin (Melatonin 3 Mg Tablet) 6 mg PO BEDTIME PRN PRN Reason: Insomnia Last Admin: 11/29/22 01:22 Dose: 6 mg Documented By: MARINO Metoprolol Tartrate (Metoprolol Tartrate 25 Mg Tablet) 25 mg PO BID [facility]; Protocol Last Admin: 11/29/22 08:35 Dose: 25 mg Documented By: DMITRI Nystatin (Nystatin Powder 15 Gm Bottle) 1 appl TOPICAL TID [facility]; Protocol Last Admin: 11/29/22 08:35 Dose: 1 appl Documented By: DMITRI Ondansetron HCl (Ondansetron Hcl 4 Mg/2 Ml Vial) 4 mg IVPUSH Q8H PRN PRN Reason: Nausea and Vomiting Pharmacy Consult (Consult Rx Perform Med Rec) 1 each MISCELLANE ONCE PRN PRN Reason: Consult order Senna (Sennosides 8.6 Mg Tablet) 17.2 mg PO DAILY [facility] Last Admin: 11/29/22 08:34 Dose: 17.2 mg Documented By: DMITRI Sevelamer Carbonate (Sevelamer Carbonate Tablet 800 Mg Tablet) 800 mg PO TID [facility] Last Admin: 11/29/22 08:35 Dose: 800 mg Documented By: DMITRI Sodium Chloride (0.9 % Sodium Chloride Flush 3 Ml Syringe) 3 ml IVFLUSH QSHIFT [facility] Last Admin: 11/29/22 08:33 Dose: 3 ml Documented By: DMITRI Tiotropium [place] (Tiotropium [place] 18 Mcg Cap.W.Dev) 1 puff INHALE RDAILY [facility] Last Admin: 11/29/22 07:42 Dose: 1 puff Documented By: MONIE Vitamin D (Cholecalciferol (Vitamin D3) 25 Mcg Tablet) 25 mcg PO DAILY [facility] Last Admin: 11/29/22 08:34 Dose: 25 mcg Documented By: DMITRI Labs 11/28/22 07:28 11/28/22 06:55 Labs: Laboratory Results - last 24 hr 11/28/22 11/28/22 11/29/22 16:30 20:07 06:35 POC Glucose 110 173 H COVID-19 ([facility]) Negative COVID-19 Clin Com See Note 11/29/22 11/29/22 07:25 11:24 POC Glucose 97 183 H COVID-19 ([facility]) COVID-19 Clin Com Assessment and Plan (1) ESRD on hemodialysis: Status: Acute Plan This is a 72-year-old female with pertinent history of ESRD on hemodialysis, essential hypertension, COPD, insulin-dependent diabetes mellitus, atrial fibrillation on Eliquis, mood disorder presents to the emergency department after her dialysis catheter fell out. 1. Encounter for replacement of dialysis catheter temporary cath placed by IR; HD done continue to hold Eliquis tunneled cath 11/30/2022 in IR 2.Hyperkalemia Had HD yesterday follow renals/divalents HD 11/30(due) 3.ESRD on HD continue calcitriol and sevelamer Nephro following 4.Essential hypertension acceptable control on current therapies adjust as indicated 5.Atrial fibrillation rate control adequate continue to hold Eliquis depending tunneled catheter placement 6.Insulin-dependent diabetes mellitus acceptable control on lispro correctional scale/basal insulin adjust as indicated Boots Full code Patient will require ongoing hospitalization pending tunnel catheter placement on Wednesday. Cannot be discharge with temporary line Time Spent With Patient Time: Total time managing care of this patient today ____ minutes. Quality Stroke Does the patient have a stroke diagnosis?: No VTE Prior VTE?: No VTE Risk Level:: Medical - moderate - high VTE Device Contraindication: N/A - Device Ordered VTE Drug Contraindication: Treatment Not Indicated
--- NOTE | 2022-11-29 16:05 | P.CONNP_ITS ---
History of Present Illness Reason for Consult Consult date: 11/29/22 Reason for consult: Management of ESRD Chief Complaint Chief complaint: Port needs replacement History of Present Illness Narrative: 72 yo woman who dialyzes at [facility]AM[facility] Saunders-presented to ER after her permacath fellow out and she had significant bleeding from site. She was hyperkalemic and IR placed a temp neck mahurkur and we dialyzed her yesterday. She is here now for placement of a new permcath tomorrow> At present she feels ok but is wheezy. Review of Systems Review of Systems Denies chest pain Wheezy, mild SOB Denies nausea vomiting diarrhea Denies fever chills Yes all other systems are reviewed and are negative Constitutional: Reports no additional constitutional complaints, Denies chills, Denies fever(s) and Denies night sweats Eyes: Reports no additional eye complaints, Denies blurry vision, Denies change in vision, Denies diplopia, Denies eye discharge, Denies loss of vision and Denies eye pain Denies dizziness Cardiovascular: Reports no additional cardiovascular complaints, Denies chest pain, Denies lightheadedness and Denies Loss of Consciousness Comments: SOB, wheezy edema Gastrointestinal: Reports no additional gastrointestinal complaints, Denies abdominal pain, Denies melena, Denies hematochezia, Denies change in bowel habits and Denies change in stool character Musculoskeletal: Reports no additional musculoskeletal complaints, Denies numbness and Denies tingling Denies dizziness, Denies loss of vision, Denies numbness and Denies tingling Psychiatric: Reports no additional psychiatric complaints Endocrine: Reports no additional endocrine complaints Hematologic/Lymphatic: Reports no additional hematologic/lymphatic complaints Allergic/Immunologic: Reports no additional allergic/immunologic complaints [facility] Past Medical History Medical History Afib COPD (chronic obstructive pulmonary disease) ESRD on hemodialysis Essential hypertension Mixed hyperlipidemia Mood disorder Family History Pertinent family history: No family history of CAD Social History Social History Household Members: Other Housing: Assisted Living Facility Do you presently have visiting nurse or other home services: No Patient Tobacco Use Status: Former Tobacco user Quit Date: quit as a teenager Tobacco use type: Cigarette Second Hand Smoke Exposure: No service: No Meds Allergies Allergy/AdvReac Type Severity Reaction Status Date / Time levofloxacin [From Levaquin] Allergy Anaphylaxis Verified 11/27/22 13:01 Active Medications: Current Medications Acetaminophen (Acetaminophen 325 Mg Tablet) 650 mg PO Q6H PRN PRN Reason: Pain, Mild (Pain Scale 1-3) Last Admin: 11/29/22 04:01 Dose: 650 mg Albuterol Sulfate (Albuterol Sulfate (0.083%) 2.5 Mg/3 Ml Vial.Neb) 2.5 mg INHALE RQ6H PRN PRN Reason: Wheezing Albuterol/Ipratropium (Albuterol/Iprat 2.5/0.5mg 3 Ml Ampul.Neb) 3 ml INHALE RQ4H [facility] Last Admin: 11/29/22 15:42 Dose: 3 ml Artificial Tears (Artificial Tears 15 Ml Drops) 1 drop EYE-BOTH BID PRN PRN Reason: REDNESS AND IRRITATION Atorvastatin Calcium (Atorvastatin Calcium 80 Mg Tablet) 80 mg PO DAILY [facility] Last Admin: 11/29/22 08:35 Dose: 80 mg Calcitriol (Calcitriol 0.25 Mcg Capsule) 0.25 mcg PO MOFR [facility] Last Admin: 11/27/22 23:46 Dose: 0.25 mcg Clotrimazole (Clotrimazole 1 % Cream 15 Gm Tube) 1 appl TOPICAL BID PRN PRN Reason: BREAST RASH Diltiazem HCl (Diltiazem Hcl Cd 180 Mg Cap.Er.24h) 360 mg PO DAILY [facility]; Protocol Last Admin: 11/29/22 08:33 Dose: 360 mg Docusate Sodium (Docusate Sodium 100 Mg Capsule) 100 mg PO DAILY [facility] Last Admin: 11/29/22 08:34 Dose: 100 mg Duloxetine HCl (Duloxetine Hcl 20 Mg Capsule.) 20 mg PO DAILY [facility] Last Admin: 11/29/22 08:34 Dose: 20 mg Ferrous Sulfate (Ferrous Sulfate 324 Mg Tablet.) 324 mg PO BID [facility] Last Admin: 11/29/22 08:33 Dose: 324 mg Fluticasone Propionate (Fluticasone Propionate Nasal 16 Gm [place]) 1 spray NO STRIL-B DAILY [facility] Last Admin: 11/29/22 10:25 Dose: 1 spray Fluticasone/Vilanterol (Fluticasone/Vilanterol 200/25 Blst.W.Dev) 1 puff INHALE RDAILY [facility] Last Admin: 11/29/22 11:23 Dose: Not Given Furosemide (Furosemide 40 Mg Tablet) 40 mg PO DAILY [facility]; Protocol Last Admin: 11/29/22 08:35 Dose: 40 mg Glucose (Glucose Gel 15 Gm Gel..Gram.) 15 gm PO Q15M PRN; Protocol PRN Reason: per Hypoglycemia Standing Ord. Hydralazine HCl (Hydralazine Hcl 50 Mg Tablet) 50 mg PO TID [facility]; Protocol Last Admin: 11/29/22 15:41 Dose: 50 mg Dextrose (D10) 250 mls @ 750 mls/hr IV Q15M PRN; Protocol PRN Reason: per Hypoglycemia Standing Ord. Insulin Glargine (Insulin Glargine,Hum.Rec.Anlog 100 Unit/Ml 10 Ml Vial) 15 unit SUBCUT BEDTIME [facility] Last Admin: 11/28/22 20:30 Dose: 15 unit Insulin Human Lispro (Insulin Lispro 100 Unit/Ml 3 Ml Vial) 0 unit SUBCUT QIDACHS [facility]; Protocol Last Admin: 11/29/22 11:56 Dose: Not Given Lactic Acid (Ammonium Lactate 12 % Cream 140 Gm Tube) 1 appl TOPICAL DAILY [facility]; Protocol Last Admin: 11/29/22 10:24 Dose: 1 appl Loratadine (Loratadine 10 Mg Tablet) 10 mg PO DAILY [facility] Last Admin: 11/29/22 08:35 Dose: 10 mg Melatonin (Melatonin 3 Mg Tablet) 6 mg PO BEDTIME PRN PRN Reason: Insomnia Last Admin: 11/29/22 01:22 Dose: 6 mg Metoprolol Tartrate (Metoprolol Tartrate 25 Mg Tablet) 25 mg PO BID [facility]; Protocol Last Admin: 11/29/22 08:35 Dose: 25 mg Nystatin (Nystatin Powder 15 Gm Bottle) 1 appl TOPICAL TID [facility]; Protocol Last Admin: 11/29/22 15:42 Dose: Not Given Ondansetron HCl (Ondansetron Hcl 4 Mg/2 Ml Vial) 4 mg IVPUSH Q8H PRN PRN Reason: Nausea and Vomiting Pharmacy Consult (Consult Rx Perform Med Rec) 1 each MISCELLANE ONCE PRN PRN Reason: Consult order Senna (Sennosides 8.6 Mg Tablet) 17.2 mg PO DAILY [facility] Last Admin: 11/29/22 08:34 Dose: 17.2 mg Sevelamer Carbonate (Sevelamer Carbonate Tablet 800 Mg Tablet) 800 mg PO TID [facility] Last Admin: 11/29/22 15:41 Dose: 800 mg Sodium Chloride (0.9 % Sodium Chloride Flush 3 Ml Syringe) 3 ml IVFLUSH QSHIFT [facility] Last Admin: 11/29/22 15:43 Dose: 3 ml Tiotropium [place] (Tiotropium [place] 18 Mcg Cap.W.Dev) 1 puff INHALE RDAILY [facility] Last Admin: 11/29/22 07:42 Dose: 1 puff Vitamin D (Cholecalciferol (Vitamin D3) 25 Mcg Tablet) 25 mcg PO DAILY [facility] Last Admin: 11/29/22 08:34 Dose: 25 mcg Home Medications Medication Instructions Recorded Confirmed Last Taken Type acetaminophen 325 mg tablet 650 mg PO Q4H PRN Pain 11/27/22 11/27/22 Unknown History albuterol sulfate 2.5 mg/3 mL 2.5 mg inhalation Q6H PRN Wheezing 11/27/22 11/27/22 Unknown History (0.083 %) solution for nebulization ammonium lactate 12 % topical cream 1 appl topical DAILY 11/27/22 11/27/22 Unknown History apixaban 2.5 mg tablet (Eliquis) 2.5 mg PO BID 11/27/22 11/27/22 Unknown History atorvastatin 80 mg tablet 80 mg PO DAILY 11/27/22 11/27/22 Unknown History calcitriol 0.25 mcg capsule 0.25 mcg PO MOFR 11/27/22 11/27/22 Unknown History cetirizine 10 mg tablet 10 mg PO DAILY 11/27/22 11/27/22 Unknown History cholecalciferol (vitamin D3) 25 25 mcg PO DAILY 11/27/22 11/27/22 Unknown History mcg (1,000 unit) tablet clotrimazole-betamethasone 1 1 appl topical BID PRN BREAST RASH 11/27/22 11/27/22 Unknown History %-0.05 % topical cream diltiazem HCl 360 mg 360 mg PO DAILY 11/27/22 11/27/22 Unknown History capsule,extended release 24 hr docusate sodium 100 mg capsule 100 mg PO DAILY 11/27/22 11/27/22 Unknown History duloxetine 20 mg capsule,delayed 20 mg PO DAILY 11/27/22 11/27/22 Unknown History release ferrous sulfate 325 mg (65 mg 325 mg PO BID 11/27/22 11/27/22 Unknown History iron) tablet fluticasone fur. 200 mcg-umeclid 1 ea inhalation DAILY 11/27/22 11/27/22 Unknown History 62.5 mcg-vilant 25 mcg inhalat.powder (Trelegy Ellipta) fluticasone propionate 50 1 spray intranasal DAILY 11/27/22 11/27/22 Unknown History mcg/actuation nasal spray,suspension furosemide 40 mg tablet 40 mg PO DAILY 11/27/22 11/27/22 Unknown History furosemide 80 mg tablet 80 mg PO BID PRN WEIGHT GAIN 11/27/22 11/27/22 Unknown History GREATER THAN 5 POUNDS, TAKE FOR 3 DAYS hydralazine 50 mg tablet 50 mg PO TID 11/27/22 11/27/22 Unknown History insulin glargine 100 unit/mL (3 20 unit subcut BEDTIME 11/27/22 11/27/22 Unknown History mL) subcutaneous pen ipratropium 0.5 mg-albuterol 3 mg 3 ml inhalation Q4H 11/27/22 11/27/22 Unknown History (2.5 mg base)/3 mL nebulization soln metoprolol tartrate 25 mg tablet 25 mg PO BID 11/27/22 11/27/22 Unknown History naphazoline-glycerin 0.012 %-0.25 1 drp ophthalmic (eye) BID PRN 11/27/22 11/27/22 Unknown History % eye drops (Clear Eyes Redness REDNESS AND IRRITATION Relief) nystatin 100,000 unit/gram topical 1 appl topical BID-TID 11/27/22 11/27/22 Unknown History powder sennosides 8.6 mg tablet (senna) 17.2 mg PO DAILY 11/27/22 11/27/22 Unknown History sevelamer carbonate 800 mg tablet 800 mg PO TID 11/27/22 11/27/22 Unknown History Physical Exam Vital Signs: Last Vital Signs Temp 97.8 F 11/29/22 15:32 Pulse 56 11/29/22 15:44 Resp 20 11/29/22 15:44 BP 118/59 L 11/29/22 15:32 Pulse Ox 97 11/29/22 15:32 O2 Del Method Room Air 11/29/22 15:32 O2 Flow Rate 2 11/29/22 07:26 BMI result Body Mass Index 34.7 Const Other: Overweight, alert, oriented and appropriate In no distress HEENT Other: dark circles under eyes Neck Other: R Ij mahurkur Chest Other: Inspiratory wheezes without rales Cardio Other: Irreg rhythm, no murmur Jugular venous distension: JVD Extrem Other: bilateral 1 plus pretib pitting edema Results Lab Results 11/28/22 07:28 11/28/22 06:55 Lab results: Chemistry 11/27/22 11/28/22 15:41 06:55 Sodium 139 139 Potassium 5.8 H 5.3 H Carbon Dioxide 20 L 17 L BUN 66 H 67 H Creatinine 4.53 H* 4.68 H* Calcium 9.6 9.6 Hematology 11/27/22 11/28/22 15:41 07:28 WBC 6.3 5.5 Hgb 10.4 L 10.4 L Plt Count 155 L 132 L Assessment and Plan (1) ESRD on hemodialysis: Status: Acute (2) Hyperkalemia: Status: Acute (3) Acidosis: Status: Acute Plan Plan for placement of new permcath tomorrow and dialysis here tomorrow afterward to ensure it is working She should be able to be discharged after dialysis tomorrow Vol overload will be addressed with dialysis tomorrow along with acid/base issue Low K diet, fluid restrict Time Spent With Patient Time: Total time managing care of this patient today ____ minutes. Procedures Date of Service Date of Service: 11/29/22
[2022-11-29 16:41] LABS: Glucose, Whole Blood 170 mg/dL (60-115)
[2022-11-29] MEDS: Insulin Lispro 100 UNIT/ML 3 ML VIAL SUBCUT ×2 (17:20→20:44)
[2022-11-29 20:29] LABS: Glucose, Whole Blood 153 mg/dL (60-115)
[2022-11-29] MEDS: Insulin Glargine,Hum.rec.anlog 100 UNIT/ML 10 ML VIAL 15 UNIT SUBCUT (20:44)
[2022-11-30] VITALS (10 sets, daily range): BP systolic 125–161; BP diastolic 59–72; PULSE 50–97; RESP 16–20; TEMP 36.6–36.9; O2SAT 95–99
[2022-11-30] MEDS: Albuterol/Iprat 2.5/0.5MG 3 ML AMPUL.NEB INHALE ×5 (00:53→20:25)
[2022-11-30 06:45] LABS: Prothrombin Time 11.8 SEC (10.0-13.1)
[2022-11-30] MEDS: 0.9 % Sodium Chloride Flush 3 ML SYRINGE IVFLUSH ×3 (07:15→21:58)
[2022-11-30 07:23] LABS: Anion Gap 15 (12-20); Blood Urea Nitrogen 46 mg/dL (9-16); Calcium 9.2 mg/dL (8.4-10.2); Carbon Dioxide 19 mmol/L (22-29); Chloride 105 mmol/L (96-108); Creatinine Clr Calc Pharmacy 13.2; Estimated Glomerular Filt Rate 12; Glucose Random 83 mg/dL (60-115); Potassium 4.9 mmol/L (3.3-5.1); Sodium 134 mmol/L (135-145)
[2022-11-30 07:37] LABS: Glucose, Whole Blood 82 mg/dL (60-115)
[2022-11-30] MEDS: Fluticasone/Vilanterol 200/25 BLST.W.DEV 1 PUFF INHALE (08:56)
--- NOTE | 2022-11-30 09:45 | HO.PM.IMPN ---
Subjective Subjective Date of Service: 11/30/22 Interval History: Seen and evaluated this morning Feels wheezy and dyspneic with exertion Temp dialysis cath in place no other overnight events Review of Systems Review of Systems: Yes all other systems are reviewed and are negative Physical Exam Vital Signs: Vital Signs: Last Vital Signs Temp 98.2 F 11/30/22 07:14 Pulse 74 11/30/22 08:58 Resp 16 11/30/22 08:58 BP 142/68 H 11/30/22 07:14 Pulse Ox 97 11/30/22 07:14 O2 Del Method Room Air 11/30/22 07:14 O2 Flow Rate 2 11/29/22 07:26 BMI result Body Mass Index 34.7 Const: Other: Constitutional : Awake, interactive, not in distress Neck : Normal inspection, Supple, temp dialysis cath in place with no erythema or tenderness Cardiovascular : RRR, no JVP, trace lower extremity edema Respiratory : good bilateral air entry, no crackles, wheezes or rhonchi Gastrointestinal: soft, lax, Normal bowel sounds, Non tender Skin : Warm, Dry Neurological : Alert & oriented x3, No focal deficit Objective Data Active Medications Acetaminophen (Acetaminophen 325 Mg Tablet) 650 mg PO Q6H PRN PRN Reason: Pain, Mild (Pain Scale 1-3) Last Admin: 11/29/22 04:01 Dose: 650 mg Documented By: MARINO Albuterol Sulfate (Albuterol Sulfate (0.083%) 2.5 Mg/3 Ml Vial.Neb) 2.5 mg INHALE RQ6H PRN PRN Reason: Wheezing Albuterol/Ipratropium (Albuterol/Iprat 2.5/0.5mg 3 Ml Ampul.Neb) 3 ml INHALE RQ4H [facility] Last Admin: 11/30/22 08:55 Dose: 3 ml Documented By: ZAKI Artificial Tears (Artificial Tears 15 Ml Drops) 1 drop EYE-BOTH BID PRN PRN Reason: REDNESS AND IRRITATION Atorvastatin Calcium (Atorvastatin Calcium 80 Mg Tablet) 80 mg PO DAILY [facility] Last Admin: 11/29/22 08:35 Dose: 80 mg Documented By: DMITRI Calcitriol (Calcitriol 0.25 Mcg Capsule) 0.25 mcg PO MOFR [facility] Last Admin: 11/27/22 23:46 Dose: 0.25 mcg Documented By: ARLYN Clotrimazole (Clotrimazole 1 % Cream 15 Gm Tube) 1 appl TOPICAL BID PRN PRN Reason: BREAST RASH Diltiazem HCl (Diltiazem Hcl Cd 180 Mg Cap.Er.24h) 360 mg PO DAILY [facility]; Protocol Last Admin: 11/29/22 08:33 Dose: 360 mg Documented By: DMITRI Docusate Sodium (Docusate Sodium 100 Mg Capsule) 100 mg PO DAILY [facility] Last Admin: 11/29/22 08:34 Dose: 100 mg Documented By: DMITRI Duloxetine HCl (Duloxetine Hcl 20 Mg Capsule.) 20 mg PO DAILY [facility] Last Admin: 11/29/22 08:34 Dose: 20 mg Documented By: DMITRI Ferrous Sulfate (Ferrous Sulfate 324 Mg Tablet.) 324 mg PO BID [facility] Last Admin: 11/29/22 20:45 Dose: 324 mg Documented By: MARINO Fluticasone Propionate (Fluticasone Propionate Nasal 16 Gm [place]) 1 spray NOSTRIL-B DAILY [facility] Last Admin: 11/29/22 10:25 Dose: 1 spray Documented By: DMITRI Fluticasone/Vilanterol (Fluticasone/Vilanterol 200/25 Blst.W.Dev) 1 puff INHALE RDAILY [facility] Last Admin: 11/30/22 08:56 Dose: 1 puff Documented By: ZAKI Furosemide (Furosemide 40 Mg Tablet) 40 mg PO DAILY [facility]; Protocol Last Admin: 11/29/22 08:35 Dose: 40 mg Documented By: DMITRI Glucose (Glucose Gel 15 Gm Gel..Gram.) 15 gm PO Q15M PRN; Protocol PRN Reason: per Hypoglycemia Standing Ord. Hydralazine HCl (Hydralazine Hcl 50 Mg Tablet) 50 mg PO TID [facility]; Protocol Last Admin: 11/29/22 20:45 Dose: 50 mg Documented By: MARINO Dextrose (D10) 250 mls @ 750 mls/hr IV Q15M PRN; Protocol PRN Reason: per Hypoglycemia Standing Ord. Insulin Glargine (Insulin Glargine,Hum.Rec.Anlog 100 Unit/Ml 10 Ml Vial) 15 unit SUBCUT BEDTIME [facility] Last Admin: 11/29/22 20:44 Dose: 15 unit Documented By: MARINO Insulin Human Lispro (Insulin Lispro 100 Unit/Ml 3 Ml Vial) 0 unit SUBCUT QIDACHS [facility]; Protocol Last Admin: 11/30/22 07:16 Dose: Not Given Documented By: LAURA Non-Admin Reason: No Insulin Coverage Lactic Acid (Ammonium Lactate 12 % Cream 140 Gm Tube) 1 appl TOPICAL DAILY [facility]; Protocol Last Admin: 11/29/22 10:24 Dose: 1 appl Documented By: DMITRI Loratadine (Loratadine 10 Mg Tablet) 10 mg PO DAILY [facility] Last Admin: 11/29/22 08:35 Dose: 10 mg Documented By: DMITRI Melatonin (Melatonin 3 Mg Tablet) 6 mg PO BEDTIME PRN PRN Reason: Insomnia Last Admin: 11/29/22 01:22 Dose: 6 mg Documented By: MARINO Metoprolol Tartrate (Metoprolol Tartrate 25 Mg Tablet) 25 mg PO BID [facility]; Protocol Last Admin: 11/29/22 20:45 Dose: 25 mg Documented By: MARINO Nystatin (Nystatin Powder 15 Gm Bottle) 1 appl TOPICAL TID [facility]; Protocol Last Admin: 11/29/22 20:48 Dose: Not Given Documented By: MARINO Non-Admin Reason: Patient Refused Ondansetron HCl (Ondansetron Hcl 4 Mg/2 Ml Vial) 4 mg IVPUSH Q8H PRN PRN Reason: Nausea and Vomiting Pharmacy Consult (Consult Rx Perform Med Rec) 1 each MISCELLANE ONCE PRN PRN Reason: Consult order Senna (Sennosides 8.6 Mg Tablet) 17.2 mg PO DAILY [facility] Last Admin: 11/29/22 08:34 Dose: 17.2 mg Documented By: DMITRI Sevelamer Carbonate (Sevelamer Carbonate Tablet 800 Mg Tablet) 800 mg PO TID [facility] Last Admin: 11/29/22 20:45 Dose: 800 mg Documented By: MARINO Sodium Chloride (0.9 % Sodium Chloride Flush 3 Ml Syringe) 3 ml IVFLUSH QSHIFT [facility] Last Admin: 11/30/22 07:15 Dose: 3 ml Documented By: LAURA Tiotropium [place] (Tiotropium [place] 18 Mcg Cap.W.Dev) 1 puff INHALE RDAILY [facility] Last Admin: 11/30/22 08:55 Dose: 1 puff Documented By: ZAKI Vitamin D (Cholecalciferol (Vitamin D3) 25 Mcg Tablet) 25 mcg PO DAILY [facility] Last Admin: 11/29/22 08:34 Dose: 25 mcg Documented By: DMITRI Labs 11/28/22 07:28 11/30/22 05:36 Labs: Laboratory Results - last 24 hr 11/29/22 11/29/22 11/29/22 11:24 16:35 20:21 PT INR Anion Gap Estim Creat Clear Calc Estimated GFR POC Glucose 183 H 170 H 153 H Random Glucose Calcium 11/30/22 11/30/22 11/30/22 05:36 05:36 07:16 PT 11.8 INR 1.0 Anion Gap 15 Estim Creat Clear Calc 13.2 Estimated GFR 12 POC Glucose 82 Random Glucose 83 Calcium 9.2 Assessment and Plan (1) Hyperkalemia: Status: Acute (2) ESRD on hemodialysis: Status: Acute Plan This is a 72-year-old female with pertinent history of ESRD on hemodialysis, essential hypertension, COPD, insulin-dependent diabetes mellitus, atrial fibrillation on Eliquis, mood disorder presents to the emergency department after her dialysis catheter fell out. 1. Encounter for replacement of dialysis catheter temporary cath placed by IR; HD done continue to hold Eliquis tunneled cath 12/01/2022 in IR 2.Hyperkalemia Had HD yesterday follow renals/divalents HD 11/30(due) 3.ESRD on HD MWF schedule continue calcitriol and sevelamer Nephro following 4.Essential hypertension acceptable control on current therapies adjust as indicated 5.Atrial fibrillation rate control adequate continue to hold Eliquis depending tunneled catheter placement 6.Insulin-dependent diabetes mellitus acceptable control on lispro correctional scale/basal insulin adjust as indicated Boots Full code Patient will require ongoing hospitalization pending tunnel catheter placement on Wednesday. Cannot be discharge with temporary line Time Spent With Patient Time: Total time managing care of this patient today ____ minutes. Quality Stroke Does the patient have a stroke diagnosis?: No VTE Prior VTE?: No VTE Risk Level:: Medical - moderate - high VTE Device Contraindication: N/A - Device Ordered VTE Drug Contraindication: Treatment Not Indicated
--- NOTE | 2022-11-30 10:48 | MHC.CLN ---
NUTRITION DIET CHANGED PER DIALYSIS PARAMETERS WITH DM. DIET=DIABETIC 1800 KCALS, 2 GRAM SODIUM, LOW POTASSIUM, LOW PHOSPHORUS. WILL BE NPO 12/01 FOR DIALYSIS PORT REPLACEMENT.
[2022-11-30] MEDS: Cholecalciferol (Vitamin D3) 25 MCG TABLET PO (10:58)
[2022-11-30] MEDS: DULoxetine HCl 20 MG CAPSULE.DR PO (10:58)
[2022-11-30] MEDS: Docusate Sodium 100 MG CAPSULE PO (10:58)
[2022-11-30] MEDS: Ferrous Sulfate 324 MG TABLET.DR PO ×2 (10:58→21:55)
[2022-11-30] MEDS: Sennosides 8.6 MG TABLET 17.2 MG PO (10:58)
[2022-11-30] MEDS: dilTIAZem HCL CD 180 MG CAP.ER.24H 360 MG PO (10:59)
[2022-11-30] MEDS: Loratadine 10 MG TABLET PO (10:59)
[2022-11-30] MEDS: Sevelamer Carbonate Tablet 800 MG TABLET PO ×3 (10:59→21:55)
[2022-11-30] MEDS: Ammonium Lactate 12 % Cream 140 GM TUBE 1 APPL TOPICAL (10:59)
[2022-11-30] MEDS: Atorvastatin Calcium 80 MG TABLET PO (10:59)
[2022-11-30] MEDS: Furosemide 40 MG TABLET PO (11:00)
[2022-11-30] MEDS: Fluticasone Propionate Nasal 16 GM SPRAY 1 SPRAY NOSTRIL-B (11:00)
[2022-11-30] MEDS: hydrALAZINE HCl 50 MG TABLET PO ×3 (11:00→21:55)
[2022-11-30] MEDS: Nystatin Powder 15 GM BOTTLE 1 APPL TOPICAL ×2 (11:00→21:56)
[2022-11-30] MEDS: Metoprolol Tartrate 25 MG TABLET PO ×2 (11:00→21:55)
[2022-11-30 11:26] LABS: Glucose, Whole Blood 158 mg/dL (60-115)
[2022-11-30] MEDS: Insulin Lispro 100 UNIT/ML 3 ML VIAL SUBCUT (11:37)
--- NOTE | 2022-11-30 11:38 | PM.PNNEP ---
Subjective Subjective Date of Service: 12/01/22 Interval history: Seen and evaluated this morning Physical Exam Vital Signs: Vital Signs: Last Vital Signs Temp 98.2 F 11/30/22 07:14 Pulse 74 11/30/22 11:02 Resp 16 11/30/22 08:58 BP 142/68 H 11/30/22 07:14 Pulse Ox 97 11/30/22 07:14 O2 Del Method Room Air 11/30/22 07:14 O2 Flow Rate 2 11/29/22 07:26 BMI result Body Mass Index 34.7 Const: Other: Overweight, alert, oriented and appropriate In no distress HEENT: Other: dark circles under eyes Neck: Other: R Ij mahurkur Chest: Other: Inspiratory wheezes without rales Cardio: Other: Irreg rhythm, no murmur Jugular venous distension: JVD Extrem: Other: bilateral 1 plus pretib pitting edema Objective Data Labs 11/28/22 07:28 11/30/22 05:36 Labs: Laboratory Results - last 24 hr 11/29/22 11/29/22 11/30/22 16:35 20:21 05:36 PT INR Sodium 134 L Potassium 4.9 Chloride 105 Carbon Dioxide 19 L Anion Gap 15 BUN 46 H Creatinine 3.81 H Estim Creat Clear Calc 13.2 Estimated GFR 12 POC Glucose 170 H 153 H Random Glucose 83 Calcium 9.2 11/30/22 11/30/22 11/30/22 05:36 07:16 11:20 PT 11.8 INR 1.0 Sodium Potassium Chloride Carbon Dioxide Anion Gap BUN Creatinine Estim Creat Clear Calc Estimated GFR POC Glucose 82 158 H Random Glucose Calcium Procedures Date of Service Date of Service: 11/30/22 Assessment & Plan Assessment and plan (1) ESRD on hemodialysis: Status: Acute (2) Hyperkalemia: Status: Acute (3) Acidosis: Status: Acute Plan ESRD No signs or symptoms of uremia. Plan for placement of new permcath tomorrow and dialysis here afterward to ensure it is working She should be able to be discharged after dialysis Vol overload will be addressed with dialysis tomorrow along with acid/base issue Low K diet, fluid restrict Time Spent With Patient Time: Total time managing care of this patient today ____ minutes. Progress Note: Quality Stroke Does the patient have a stroke diagnosis?: No
[2022-11-30 16:40] LABS: Glucose, Whole Blood 98 mg/dL (60-115)
[2022-11-30 20:20] LABS: Glucose, Whole Blood 126 mg/dL (60-115)
[2022-11-30] MEDS: Insulin Glargine,Hum.rec.anlog 100 UNIT/ML 10 ML VIAL 15 UNIT SUBCUT (21:55)
[2022-11-30] MEDS: calcitrioL 0.25 MCG CAPSULE PO (21:58)
[2022-12-01] VITALS (11 sets, daily range): BP systolic 120–146; BP diastolic 57–77; PULSE 46–108; RESP 16–28; TEMP 36.2–37; O2SAT 94–100
[2022-12-01] MEDS: Albuterol/Iprat 2.5/0.5MG 3 ML AMPUL.NEB INHALE ×3 (01:44→19:52)
[2022-12-01 07:34] LABS: Glucose, Whole Blood 101 mg/dL (60-115)
[2022-12-01] MEDS: 0.9 % Sodium Chloride Flush 3 ML SYRINGE IVFLUSH (08:23)
[2022-12-01] MEDS: Fluticasone Propionate Nasal 16 GM SPRAY 1 SPRAY NOSTRIL-B (08:24)
[2022-12-01] MEDS: Loratadine 10 MG TABLET PO (08:24)
[2022-12-01] MEDS: Furosemide 40 MG TABLET PO (08:24)
[2022-12-01] MEDS: Atorvastatin Calcium 80 MG TABLET PO (08:24)
[2022-12-01] MEDS: dilTIAZem HCL CD 180 MG CAP.ER.24H 360 MG PO (08:24)
[2022-12-01] MEDS: Nystatin Powder 15 GM BOTTLE 1 APPL TOPICAL (08:24)
[2022-12-01] MEDS: Ammonium Lactate 12 % Cream 140 GM TUBE 1 APPL TOPICAL (08:24)
[2022-12-01] MEDS: Sennosides 8.6 MG TABLET 17.2 MG PO (08:25)
[2022-12-01] MEDS: Ferrous Sulfate 324 MG TABLET.DR PO ×2 (08:25→20:53)
[2022-12-01] MEDS: Metoprolol Tartrate 25 MG TABLET PO ×2 (08:25→20:52)
[2022-12-01] MEDS: Sevelamer Carbonate Tablet 800 MG TABLET PO ×2 (08:25→20:52)
[2022-12-01] MEDS: Docusate Sodium 100 MG CAPSULE PO (08:25)
[2022-12-01] MEDS: hydrALAZINE HCl 50 MG TABLET PO ×2 (08:25→20:53)
[2022-12-01] MEDS: Cholecalciferol (Vitamin D3) 25 MCG TABLET PO (08:25)
[2022-12-01] MEDS: DULoxetine HCl 20 MG CAPSULE.DR PO (08:25)
[2022-12-01] MEDS: Acetaminophen 325 MG TABLET 650 MG PO ×2 (10:16→23:41)
--- NOTE | 2022-12-01 10:53 | PM.PNNEP ---
Subjective Subjective Date of Service: 12/02/22 Interval history: Seen and evaluated this morning Physical Exam Vital Signs: Vital Signs: Last Vital Signs Temp 97.9 F 12/01/22 07:28 Pulse 65 12/01/22 07:51 Resp 18 12/01/22 07:51 BP 146/67 H 12/01/22 07:28 Pulse Ox 96 12/01/22 07:28 O2 Del Method Room Air 12/01/22 07:28 O2 Flow Rate 1 12/01/22 05:19 BMI result Body Mass Index 34.7 Const: Other: Overweight, alert, oriented and appropriate In no distress HEENT: Other: dark circles under eyes Neck: Other: R Ij mahurkur Chest: Other: Inspiratory wheezes without rales Cardio: Other: Irreg rhythm, no murmur Jugular venous distension: JVD Extrem: Other: bilateral 1 plus pretib pitting edema Objective Data Labs 11/28/22 07:28 11/30/22 05:36 Labs: Laboratory Results - last 24 hr 11/30/22 11/30/22 11/30/22 11:20 16:33 20:00 POC Glucose 158 H 98 126 H 12/01/22 07:26 POC Glucose 101 Procedures Date of Service Date of Service: 12/01/22 Assessment & Plan Assessment and plan (1) ESRD on hemodialysis: Status: Acute (2) Hyperkalemia: Status: Acute (3) Acidosis: Status: Acute Plan ESRD No signs or symptoms of uremia. Plan for placement of new permcath and dialysis here afterward to ensure it is working She should be able to be discharged after dialysis Vol overload will be addressed with dialysis tomorrow along with acid/base issue Low K diet, fluid restrict Time Spent With Patient Time: Total time managing care of this patient today ____ minutes. Progress Note: Quality Stroke Does the patient have a stroke diagnosis?: No
[2022-12-01 11:30] LABS: Glucose, Whole Blood 97 mg/dL (60-115)
--- NOTE | 2022-12-01 12:21 | P.CDIM_ITS ---
PROVIDER RESPONSE TEXT: To clarify, the appropriate diagnosis supported by the clinical indicators: Acute metabolic acidosis QUERY TEXT: PHYSICIAN'S DOCUMENTATION REQUEST Date of Query: 12/01/2022 09:22 AM EDT Patient Name: Heidi Cunningham Admit Date: 11/27/2022 Dear Tom Londono, A review of the medical record indicates additional documentation may be needed. Please review below and update the documentation accordingly. Clinical Indicators: Nephrology progress note 11/29 & 11/30 - Assessment and plan: Acidosis ESRD with temporary dialysis catheter, needs replacement. Possible options might include: Acidosis Acute metabolic acidosis Chronic metabolic acidosis Other acidosis Unable to determine Other (explain) Clinically unable to determine (explain) Thank you, Parvin Helm, CCS, CDIS Use of terms such as suspected, likely, concern for, or probable (associated with a specific diagnosi s that is being evaluated, monitored, or treated as if it exists) are acceptable and can be coded in the inpatient se tting, when documented at the time of discharge. Please use your independent medical judgment in providing your response. THIS QUERY IS PART OF THE PERMANENT MEDICAL RECORD
--- NOTE | 2022-12-01 12:21 | P.CDIM_ITS ---
PROVIDER RESPONSE TEXT: To clarify, the appropriate diagnosis supported by the clinical indicators: Persistent atrial fibrillation: episodes of continuous AF that last more than 7 days and do not self- terminate QUERY TEXT: PHYSICIAN'S DOCUMENTATION REQUEST Date of Query: 12/01/2022 10:51 AM EDT Patient Name: Heidi Cunningham Admit Date: 11/27/2022 Dear Tom Londono, A review of the medical record indicates additional documentation may be needed. Please review below and update the documentation accordingly. Clinical Indicators: PN 11/30 - Assessment and plan: Atrial fibrillation, rate control adequate, hold Eliquis. If possible, please provide further specificity regarding atrial fibrillation, such as: Paroxysmal atrial fibrillation: terminates spontaneously or with intervention within 7 days of onset Persistent atrial fibrillation: episodes of continuous AF that last more than 7 days and do not self- terminate Long lasting persistent atrial fibrillation: episodes of continuous AF that last more than 12 months Chronic or Permanent atrial fibrillation: when a decision has been made to accept the presence of AF and there is no further attempt to restore or maintain sinus rhythm Other Other (explain) Clinically unable to determine (explain) Thank you, Parvin Helm, CCS, CDIS Use of terms such as suspected, likely, concern for, or probable (associated with a specific diagnosi s that is being evaluated, monitored, or treated as if it exists) are acceptable and can be coded in the inpatient se tting, when documented at the time of discharge. Please use your independent medical judgment in providing your response. THIS QUERY IS PART OF THE PERMANENT MEDICAL RECORD
--- NOTE | 2022-12-01 12:37 | PM.DS ---
DS: Providers Provider Date of Service: 12/03/22 Date of admission: 11/27/22 19:58 Primary care physician: Konrad Rocha MD Consults: 11/27/22 19:58 Consult to Nephrology Routine Consulting Provider: Ian Newman Reason for consultation: dialysis catheter replacement DS: Diagnosis Discharge Diagnosis (1) ESRD on hemodialysis: Status: Acute (2) Hyperkalemia: Status: Acute (3) Acidosis: Status: Acute (4) Encounter for dialysis catheter care: Status: Acute DS: Summary Hospital Course Hospital Course: Admission note HPI This is a 72-year-old female with pertinent history of ESRD on hemodialysis, essential hypertension, COPD, insulin-dependent diabetes mellitus, atrial fibrillation on Eliquis, mood disorder presents to the emergency department after her dialysis catheter fell out.? Patient normally undergoes dialysis Wednesday/Wednesday/Wednesday but missed her dialysis session today as her dialysis catheter fell out last night.? Patient denies any complaints at the time of my evaluation.? No fever, chills, chest discomfort, palpitations, shortness of breath, changes in urinary or bowel habits.? States she is compliant with medications and makes urine. The emergency department, Nephrology was consulted who recommended that patient have a replacement catheter placed.? IR placed temporary catheter as patient was on Eliquis which needs to be washed out.? Nephrology recommended admission and will dialyze the patient in a.m. Hospital course admitted for changing the Permacath and need of dialysis. Temporary catheter was placed for urgent dialysis as patient had hyperkalemia and metabolic acidosis. the Permacath was placed Wednesday and Dialysis session went well. developed oozing around the site of Permacath controlled with DDAVP after discussing with IR provider. Eliquis to be restarted. she was followed by nephrology team who recommended outpatient follow up with dialysis as scheduled. Time Spent with Patient Time attestation: Total time managing care of this patient today ____ minutes. Discharge coordination time: Greater than 30 minutes Quality: Safe Use of Opioids Does Pt have an Active Cancer Diagnosis on the Problem List?: No Quality: Stroke Does the patient have a stroke diagnosis?: No Physical Exam Vital Signs: Vital Signs: Last Vital Signs Temp 97.9 F 12/01/22 07:28 Pulse 65 12/01/22 07:51 Resp 18 12/01/22 07:51 BP 146/67 H 12/01/22 07:28 Pulse Ox 96 12/01/22 07:28 O2 Del Method Room Air 12/01/22 07:28 O2 Flow Rate 1 12/01/22 05:19 BMI result Body Mass Index 34.7 Const: Other: Constitutional : Awake, interactive, not in distress Neck : Normal inspection, Supple, Permacath in place with no bleeding, erythema or tenderness Cardiovascular : RRR, no JVP, trace lower extremity edema Respiratory : good bilateral air entry, no crackles, wheezes or rhonchi Gastrointestinal: soft, lax, Normal bowel sounds, Non tender Skin : Warm, Dry Neurological : Alert & oriented x3, No focal deficit DS: Data Data Completed and Pending Labs on day of discharge: Laboratory Results - last 24 hr 11/30/22 11/30/22 12/01/22 16:33 20:00 07:26 POC Glucose 98 126 H 101 12/01/22 11:20 POC Glucose 97 Imaging Chest x-ray: Radiologist's impression: ITS Impressions Chest X-Ray 11/27/22 13:14 IMPRESSION: Small bilateral pleural effusions right greater than left. Cardiomegaly without pulmonary edema. Discharge Plan Discharge Anticipated Discharge Date/Time: 12/01/22 16:00 Patient Disposition: Home, Self-Care Discharge Diagnosis: Dialysis catheter problem Referrals: [facility] [Outside] - 1 Week Konrad Rocha MD [Primary Care Provider] - 1 Week Discharge Medications: Continued furosemide 40 mg tablet 40 mg PO DAILY atorvastatin 80 mg tablet 80 mg PO DAILY sennosides [senna] 8.6 mg tablet 17.2 mg PO DAILY albuterol sulfate 2.5 mg /3 mL (0.083 %) solution for nebulization 2.5 mg inhalation Q6H PRN (Reason: Wheezing) diltiazem HCl 360 mg capsule,extended release 24hr 360 mg PO DAILY hydralazine 50 mg tablet 50 mg PO TID nystatin 100,000 unit/gram powder 1 appl topical BID-TID fluticasone propionate 50 mcg/actuation spray,suspension 1 spray intranasal DAILY calcitriol 0.25 mcg capsule 0.25 mcg PO MOFR metoprolol tartrate 25 mg tablet 25 mg PO BID duloxetine 20 mg capsule,delayed release(DR/EC) 20 mg PO DAILY insulin glargine 100 unit/mL (3 mL) insulin pen 20 unit subcut BEDTIME sevelamer carbonate 800 mg tablet 800 mg PO TID Clear Eyes Redness Relief 0.012-0.25 % drops 1 drp ophthalmic (eye) BID PRN (Reason: REDNESS AND IRRITATION) Eliquis 2.5 mg tablet 2.5 mg PO BID Trelegy Ellipta 200-62.5-25 mcg blister with device 1 ea inhalation DAILY acetaminophen 325 mg Tablet 650 mg PO Q4H PRN (Reason: Pain) ipratropium-albuterol 0.5 mg-3 mg(2.5 mg base)/3 mL solution for nebulization 3 ml inhalation Q4H cetirizine 10 mg Tablet 10 mg PO DAILY furosemide 80 mg tablet 80 mg PO BID PRN (Reason: WEIGHT GAIN GREATER THAN 5 POUNDS, TAKE FOR 3 DAYS) ferrous sulfate 325 mg (65 mg iron) Tablet 325 mg PO BID clotrimazole-betamethasone 1-0.05 % cream 1 appl topical BID PRN (Reason: BREAST RASH) docusate sodium 100 mg Capsule 100 mg PO DAILY ammonium lactate 12 % Cream 1 appl TOPICAL DAILY cholecalciferol (vitamin D3) 25 mcg (1,000 unit) Tablet 25 mcg PO DAILY Discharge Orders: Discharge Order (Routine); Ordered 12/03/22 Ordered By: Tom Londono Diet: Advance to usual diet Activity on Discharge: As tolerated Stand Alone Forms: Patient Portal Discharge page Care Plan Goals: Read below Health Concerns: Read below Plan of Treatment: Read below Assessment: You were admitted for changing the Permacath and need of dialysis. Temporary catheter was placed for dialysis. the Permacath was placed Wednesday and Dialysis session went well. Continue dialysis as scheduled.
--- NOTE | 2022-12-01 13:45 | MHC.CM.PN ---
Addendum entered by Ann Dominguez 12/01/22 15:44: [facility] retracted the bed offer. PT cleared patient to return to [facility] Addendum entered by Ann Dominguez 12/01/22 14:01: plans to dc tomorrow. Alan notified. Original Note: [facility] is offering a bed [facility]. A clinical update has been sent to the facility.
--- NOTE | 2022-12-01 14:06 | HO.PM.IMPN ---
Subjective Subjective Date of Service: 12/01/22 Interval History: Seen and evaluated this morning Feels wheezy and dyspneic with exertion Temp dialysis cath in place pending PERMA cath no other overnight events Review of Systems Review of Systems: Yes all other systems are reviewed and are negative Physical Exam Vital Signs: Vital Signs: Last Vital Signs Temp 97.9 F 12/01/22 07:28 Pulse 65 12/01/22 07:51 Resp 18 12/01/22 07:51 BP 146/67 H 12/01/22 07:28 Pulse Ox 96 12/01/22 07:28 O2 Del Method Room Air 12/01/22 07:28 O2 Flow Rate 1 12/01/22 05:19 BMI result Body Mass Index 34.7 Const: Other: Constitutional : Awake, interactive, not in distress Neck : Normal inspection, Supple, Permacath in place with no erythema or tenderness Cardiovascular : RRR, no JVP, trace lower extremity edema Respiratory : good bilateral air entry, no crackles, wheezes or rhonchi Gastrointestinal: soft, lax, Normal bowel sounds, Non tender Skin : Warm, Dry Neurological : Alert & oriented x3, No focal deficit Objective Data Active Medications Acetaminophen (Acetaminophen 325 Mg Tablet) 650 mg PO Q6H PRN PRN Reason: Pain, Mild (Pain Scale 1-3) Last Admin: 12/01/22 10:16 Dose: 650 mg Documented By: JORGE ALBERTO Albuterol Sulfate (Albuterol Sulfate (0.083%) 2.5 Mg/3 Ml Vial.Neb) 2.5 mg INHALE RQ6H PRN PRN Reason: Wheezing Albuterol/Ipratropium (Albuterol/Iprat 2.5/0.5mg 3 Ml Ampul.Neb) 3 ml INHALE RQ4H [facility] Last Admin: 12/01/22 12:35 Dose: Not Given Documented By: ALISHA Non-Admin Reason: Not In Room Artificial Tears (Artificial Tears 15 Ml Drops) 1 drop EYE-BOTH BID PRN PRN Reason: REDNESS AND IRRITATION Atorvastatin Calcium (Atorvastatin Calcium 80 Mg Tablet) 80 mg PO DAILY [facility] Last Admin: 12/01/22 08:24 Dose: 80 mg Documented By: JORGE ALBERTO Calcitriol (Calcitriol 0.25 Mcg Capsule) 0.25 mcg PO MOFR [facility] Last Admin: 11/30/22 21:58 Dose: 0.25 mcg Documented By: JATIN Clotrimazole (Clotrimazole 1 % Cream 15 Gm Tube) 1 appl TOPICAL BID PRN PRN Reason: BREAST RASH Diltiazem HCl (Diltiazem Hcl Cd 180 Mg Cap.Er.24h) 360 mg PO DAILY [facility]; Protocol Last Admin: 12/01/22 08:24 Dose: 360 mg Documented By: JORGE ALBERTO Docusate Sodium (Docusate Sodium 100 Mg Capsule) 100 mg PO DAILY [facility] Last Admin: 12/01/22 08:25 Dose: 100 mg Documented By: JORGE ALBERTO Duloxetine HCl (Duloxetine Hcl 20 Mg Capsule.) 20 mg PO DAILY [facility] Last Admin: 12/01/22 08:25 Dose: 20 mg Documented By: JORGE ALBERTO Ferrous Sulfate (Ferrous Sulfate 324 Mg Tablet.) 324 mg PO BID [facility] Last Admin: 12/01/22 08:25 Dose: 324 mg Documented By: JORGE ALBERTO Fluticasone Propionate (Fluticasone Propionate Nasal 16 Gm [place]) 1 spray NOSTRIL-B DAILY [facility] Last Admin: 12/01/22 08:24 Dose: 1 spray Documented By: JORGE ALBERTO Fluticasone/Vilanterol (Fluticasone/Vilanterol 200/25 Blst.W.Dev) 1 puff INHALE RDAILY [facility] Last Admin: 11/30/22 08:56 Dose: 1 puff Documented By: ZAKI Furosemide (Furosemide 40 Mg Tablet) 40 mg PO DAILY [facility]; Protocol Last Admin: 12/01/22 08:24 Dose: 40 mg Documented By: JORGE ALBERTO Glucose (Glucose Gel 15 Gm Gel..Gram.) 15 gm PO Q15M PRN; Protocol PRN Reason: per Hypoglycemia Standing Ord. Hydralazine HCl (Hydralazine Hcl 50 Mg Tablet) 50 mg PO TID [facility]; Protocol Last Admin: 12/01/22 08:25 Dose: 50 mg Documented By: JORGE ALBERTO Dextrose (D10) 250 mls @ 750 mls/hr IV Q15M PRN; Protocol PRN Reason: per Hypoglycemia Standing Ord. Insulin Glargine (Insulin Glargine,Hum.Rec.Anlog 100 Unit/Ml 10 Ml Vial) 15 unit SUBCUT BEDTIME [facility] Last Admin: 11/30/22 21:55 Dose: 15 unit Documented By: JATIN Insulin Human Lispro (Insulin Lispro 100 Unit/Ml 3 Ml Vial) 0 unit SUBCUT QIDACHS [facility]; Protocol Last Admin: 12/01/22 11:37 Dose: Not Given Documented By: JORGE ALBERTO Non-Admin Reason: No Insulin Coverage Lactic Acid (Ammonium Lactate 12 % Cream 140 Gm Tube) 1 appl TOPICAL DAILY [facility]; Protocol Last Admin: 12/01/22 08:24 Dose: 1 appl Documented By: JORGE ALBERTO Loratadine (Loratadine 10 Mg Tablet) 10 mg PO DAILY [facility] Last Admin: 12/01/22 08:24 Dose: 10 mg Documented By: JORGE ALBERTO Melatonin (Melatonin 3 Mg Tablet) 6 mg PO BEDTIME PRN PRN Reason: Insomnia Last Admin: 11/29/22 01:22 Dose: 6 mg Documented By: MARINO Metoprolol Tartrate (Metoprolol Tartrate 25 Mg Tablet) 25 mg PO BID [facility]; Protocol Last Admin: 12/01/22 08:25 Dose: 25 mg Documented By: JORGE ALBERTO Nystatin (Nystatin Powder 15 Gm Bottle) 1 appl TOPICAL TID [facility]; Protocol Last Admin: 12/01/22 08:24 Dose: 1 appl Documented By: JORGE ALBERTO Ondansetron HCl (Ondansetron Hcl 4 Mg/2 Ml Vial) 4 mg IVPUSH Q8H PRN PRN Reason: Nausea and Vomiting Pharmacy Consult (Consult Rx Perform Med Rec) 1 each MISCELLANE ONCE PRN PRN Reason: Consult order Senna (Sennosides 8.6 Mg Tablet) 17.2 mg PO DAILY [facility] Last Admin: 12/01/22 08:25 Dose: 17.2 mg Documented By: JORGE ALBERTO Sevelamer Carbonate (Sevelamer Carbonate Tablet 800 Mg Tablet) 800 mg PO TID [facility] Last Admin: 12/01/22 08:25 Dose: 800 mg Documented By: JORGE ALBERTO Sodium Chloride (0.9 % Sodium Chloride Flush 3 Ml Syringe) 3 ml IVFLUSH QSHIFT [facility] Last Admin: 12/01/22 08:23 Dose: 3 ml Documented By: JORGE ALBERTO Tiotropium [place] (Tiotropium [place] 18 Mcg Cap.W.Dev) 1 puff INHALE RDAILY [facility] Last Admin: 12/01/22 07:51 Dose: 1 puff Documented By: URIAH Vitamin D (Cholecalciferol (Vitamin D3) 25 Mcg Tablet) 25 mcg PO DAILY [facility] Last Admin: 12/01/22 08:25 Dose: 25 mcg Documented By: JORGE ALBERTO Labs 11/28/22 07:28 11/30/22 05:36 Labs: Laboratory Results - last 24 hr 11/30/22 11/30/22 12/01/22 16:33 20:00 07:26 POC Glucose 98 126 H 101 12/01/22 11:20 POC Glucose 97 Assessment and Plan (1) Hyperkalemia: Status: Acute (2) Acidosis: Status: Acute (3) ESRD on hemodialysis: Status: Acute Plan This is a 72-year-old female with pertinent history of ESRD on hemodialysis, essential hypertension, COPD, insulin-dependent diabetes mellitus, atrial fibrillation on Eliquis, mood disorder presents to the emergency department after her dialysis catheter fell out. 1. Encounter for replacement of dialysis catheter temporary cath placed by IR; HD done continue to hold Eliquis HD today after placement of Permacath 2.Hyperkalemia improved after HD follow renals/divalents 3.ESRD on HD MWF schedule continue calcitriol and sevelamer Nephro following 4.Essential hypertension acceptable control on current therapies adjust as indicated 5.Atrial fibrillation rate control adequate continue to hold Eliquis depending tunneled catheter placement 6.Insulin-dependent diabetes mellitus acceptable control on lispro correctional scale/basal insulin adjust as indicated Boots Full code Patient will require ongoing hospitalization pending tunnel catheter placement on Wednesday. Cannot be discharge with temporary line Time Spent With Patient Time: Total time managing care of this patient today ____ minutes. Quality Stroke Does the patient have a stroke diagnosis?: No VTE Prior VTE?: No VTE Risk Level:: Medical - moderate - high VTE Device Contraindication: N/A - Device Ordered VTE Drug Contraindication: Treatment Not Indicated
--- NOTE | 2022-12-01 14:50 | HO.RADPN ---
RADIOLOGY Narrative Narrative: RIJ 14.5 fr 19 cm length Glidepath perma cath placed. Tip at caovatrial junction.
[2022-12-01 15:01] LABS: Glucose, Whole Blood 101 mg/dL (60-115)
[2022-12-01 15:40] LABS: COVID-19 Test Negative (Negative); IDNOW Serial# 08D9AD1C
--- NOTE | 2022-12-01 15:48 | PC.NURSE ---
PT RETURNED TO ROOM PACU AT 1430 ASSISTED TO BED. VSS . BLOOD SUGAR 101. PT TAKEN TO DIALYSIS. LIGHT LUNCH TAKEN AT DIALYSIS
[2022-12-01 19:06] LABS: Glucose, Whole Blood 76 mg/dL (60-115)
[2022-12-01 20:37] LABS: Glucose, Whole Blood 167 mg/dL (60-115)
[2022-12-01] MEDS: Insulin Lispro 100 UNIT/ML 3 ML VIAL SUBCUT (20:53)
[2022-12-01] MEDS: Insulin Glargine,Hum.rec.anlog 100 UNIT/ML 10 ML VIAL 15 UNIT SUBCUT (21:06)
[2022-12-02] VITALS (8 sets, daily range): BP systolic 126–194; BP diastolic 59–84; PULSE 59–76; RESP 16–20; TEMP 36.1–36.2; O2SAT 96–98
[2022-12-02] MEDS: Albuterol/Iprat 2.5/0.5MG 3 ML AMPUL.NEB INHALE ×4 (00:02→19:29)
[2022-12-02 07:29] LABS: Glucose, Whole Blood 77 mg/dL (60-115)
[2022-12-02] MEDS: Fluticasone Propionate Nasal 16 GM SPRAY 1 SPRAY NOSTRIL-B (07:44)
[2022-12-02] MEDS: Loratadine 10 MG TABLET PO (07:46)
[2022-12-02] MEDS: dilTIAZem HCL CD 180 MG CAP.ER.24H 360 MG PO (07:46)
[2022-12-02] MEDS: hydrALAZINE HCl 50 MG TABLET PO ×3 (07:46→22:05)
[2022-12-02] MEDS: DULoxetine HCl 20 MG CAPSULE.DR PO (07:46)
[2022-12-02] MEDS: Cholecalciferol (Vitamin D3) 25 MCG TABLET PO (07:46)
[2022-12-02] MEDS: Sevelamer Carbonate Tablet 800 MG TABLET PO ×3 (07:46→22:05)
[2022-12-02] MEDS: Sennosides 8.6 MG TABLET 17.2 MG PO (07:47)
[2022-12-02] MEDS: Furosemide 40 MG TABLET PO (07:47)
[2022-12-02] MEDS: Metoprolol Tartrate 25 MG TABLET PO ×2 (07:47→22:05)
[2022-12-02] MEDS: Ferrous Sulfate 324 MG TABLET.DR PO ×2 (07:47→22:05)
[2022-12-02] MEDS: Docusate Sodium 100 MG CAPSULE PO (07:47)
[2022-12-02] MEDS: 0.9 % Sodium Chloride Flush 3 ML SYRINGE IVFLUSH ×2 (07:48→16:24)
[2022-12-02] MEDS: Nystatin Powder 15 GM BOTTLE 1 APPL TOPICAL ×2 (07:48→22:06)
[2022-12-02] MEDS: Ammonium Lactate 12 % Cream 140 GM TUBE 1 APPL TOPICAL (07:48)
[2022-12-02] MEDS: Atorvastatin Calcium 80 MG TABLET PO (08:25)
--- NOTE | 2022-12-02 09:24 | PM.PNNEP ---
Subjective Subjective Date of Service: 12/03/22 Interval history: Events noted s/p Permcath and HD 12/01/22 Had bleeding fom site - stopped with pressure Physical Exam Vital Signs: Vital Signs: Last Vital Signs Temp 97.1 F 12/02/22 07:30 Pulse 66 12/02/22 07:51 Resp 18 12/02/22 07:51 BP 194/84 H 12/02/22 07:30 Pulse Ox 98 12/02/22 07:30 O2 Del Method Room Air 12/02/22 07:30 O2 Flow Rate 1 12/01/22 05:19 BMI result Body Mass Index 34.7 Const: Other: Overweight, alert, oriented and appropriate In no distress HEENT: Other: dark circles under eyes Neck: Other: R Ij mahurkur Chest: Other: Inspiratory wheezes without rales Cardio: Other: Irreg rhythm, no murmur Jugular venous distension: JVD Extrem: Other: bilateral 1 plus pretib pitting edema Objective Data Labs 11/28/22 07:28 11/30/22 05:36 Labs: Laboratory Results - last 24 hr 12/01/22 12/01/22 12/01/22 11:20 14:57 15:00 POC Glucose 97 101 COVID-19 ([facility]) Negative COVID-19 Clin Com See Note 12/01/22 12/01/22 12/02/22 18:51 20:25 07:25 POC Glucose 76 167 H 77 COVID-19 ([facility]) COVID-19 Clin Com Procedures Date of Service Date of Service: 12/02/22 Assessment & Plan Assessment and plan (1) ESRD on hemodialysis: Status: Acute (2) Hyperkalemia: Status: Acute (3) Acidosis: Status: Acute Plan ESRD No signs or symptoms of uremia. s/p placement of new permcath and dialysis OK to be discharged Will resume out pt HD 3 x week Low K diet, fluid restrict Time Spent With Patient Time: Total time managing care of this patient today ____ minutes. Progress Note: Quality Stroke Does the patient have a stroke diagnosis?: No
[2022-12-02 11:16] LABS: Glucose, Whole Blood 176 mg/dL (60-115)
--- NOTE | 2022-12-02 11:29 | HO.PM.IMPN ---
Subjective Subjective Date of Service: 12/02/22 Interval History: Seen and evaluated this morning Feels better overall PERMA cath placed, tolerated HD but having Oozing of blood around it no other overnight events Physical Exam Vital Signs: Vital Signs: Last Vital Signs Temp 97.1 F 12/02/22 07:30 Pulse 66 12/02/22 07:51 Resp 18 12/02/22 07:51 BP 194/84 H 12/02/22 07:30 Pulse Ox 98 12/02/22 07:30 O2 Del Method Room Air 12/02/22 07:30 O2 Flow Rate 1 12/01/22 05:19 BMI result Body Mass Index 34.7 Const: Other: Constitutional : Awake, interactive, not in distress Neck : Normal inspection, Supple, Permacath in place with no erythema or tenderness but evidence of oozing blood surrounding it Cardiovascular : RRR, no JVP, trace lower extremity edema Respiratory : good bilateral air entry, no crackles, wheezes or rhonchi Gastrointestinal: soft, lax, Normal bowel sounds, Non tender Skin : Warm, Dry Neurological : Alert & oriented x3, No focal deficit Objective Data Active Medications Acetaminophen (Acetaminophen 325 Mg Tablet) 650 mg PO Q6H PRN PRN Reason: Pain, Mild (Pain Scale 1-3) Last Admin: 12/01/22 23:41 Dose: 650 mg Documented By: ISIDRA Albuterol Sulfate (Albuterol Sulfate (0.083%) 2.5 Mg/3 Ml Vial.Neb) 2.5 mg INHALE RQ6H PRN PRN Reason: Wheezing Albuterol/Ipratropium (Albuterol/Iprat 2.5/0.5mg 3 Ml Ampul.Neb) 3 ml INHALE RQ4H [facility] Last Admin: 12/02/22 07:50 Dose: 3 ml Documented By: JORGE ALBERTO Artificial Tears (Artificial Tears 15 Ml Drops) 1 drop EYE-BOTH BID PRN PRN Reason: REDNESS AND IRRITATION Atorvastatin Calcium (Atorvastatin Calcium 80 Mg Tablet) 80 mg PO DAILY [facility] Last Admin: 12/02/22 08:25 Dose: 80 mg Documented By: JORGE ALBERTO Calcitriol (Calcitriol 0.25 Mcg Capsule) 0.25 mcg PO MOFR [facility] Last Admin: 11/30/22 21:58 Dose: 0.25 mcg Documented By: JATIN Clotrimazole (Clotrimazole 1 % Cream 15 Gm Tube) 1 appl TOPICAL BID PRN PRN Reason: BREAST RASH Diltiazem HCl (Diltiazem Hcl Cd 180 Mg Cap.Er.24h) 360 mg PO DAILY [facility]; Protocol Last Admin: 12/02/22 07:46 Dose: 360 mg Documented By: JORGE ALBERTO Docusate Sodium (Docusate Sodium 100 Mg Capsule) 100 mg PO DAILY [facility] Last Admin: 12/02/22 07:47 Dose: 100 mg Documented By: JORGE ALBERTO Duloxetine HCl (Duloxetine Hcl 20 Mg Capsule.) 20 mg PO DAILY [facility] Last Admin: 12/02/22 07:46 Dose: 20 mg Documented By: JORGE ALBERTO Ferrous Sulfate (Ferrous Sulfate 324 Mg Tablet.) 324 mg PO BID [facility] Last Admin: 12/02/22 07:47 Dose: 324 mg Documented By: JORGE ALBERTO Fluticasone Propionate (Fluticasone Propionate Nasal 16 Gm [place]) 1 spray NOSTRIL-B DAILY [facility] Last Admin: 12/02/22 07:44 Dose: 1 spray Documented By: JORGE ALBERTO Fluticasone/Vilanterol (Fluticasone/Vilanterol 200/25 Blst.W.Dev) 1 puff INHALE RDAILY [facility] Last Admin: 12/02/22 08:03 Dose: Not Given Documented By: WILLIAM Non-Admin Reason: Med Not Available Furosemide (Furosemide 40 Mg Tablet) 40 mg PO DAILY [facility]; Protocol Last Admin: 12/02/22 07:47 Dose: 40 mg Documented By: JORGE ALBERTO Glucose (Glucose Gel 15 Gm Gel..Gram.) 15 gm PO Q15M PRN; Protocol PRN Reason: per Hypoglycemia Standing Ord. Hydralazine HCl (Hydralazine Hcl 50 Mg Tablet) 50 mg PO TID [facility]; Protocol Last Admin: 12/02/22 07:46 Dose: 50 mg Documented By: JORGE ALBERTO Dextrose (D10) 250 mls @ 750 mls/hr IV Q15M PRN; Protocol PRN Reason: per Hypoglycemia Standing Ord. Insulin Glargine (Insulin Glargine,Hum.Rec.Anlog 100 Unit/Ml 10 Ml Vial) 15 unit SUBCUT BEDTIME [facility] Last Admin: 12/01/22 21:06 Dose: 15 unit Documented By: ISIDRA Insulin Human Lispro (Insulin Lispro 100 Unit/Ml 3 Ml Vial) 0 unit SUBCUT QIDACHS [facility]; Protocol Last Admin: 12/02/22 07:36 Dose: Not Given Documented By: JORGE ALBERTO Non-Admin Reason: No Insulin Coverage Lactic Acid (Ammonium Lactate 12 % Cream 140 Gm Tube) 1 appl TOPICAL DAILY [facility]; Protocol Last Admin: 12/02/22 07:48 Dose: 1 appl Documented By: JORGE ALBERTO Loratadine (Loratadine 10 Mg Tablet) 10 mg PO DAILY [facility] Last Admin: 12/02/22 07:46 Dose: 10 mg Documented By: JORGE ALBERTO Melatonin (Melatonin 3 Mg Tablet) 6 mg PO BEDTIME PRN PRN Reason: Insomnia Last Admin: 11/29/22 01:22 Dose: 6 mg Documented By: MARINO Metoprolol Tartrate (Metoprolol Tartrate 25 Mg Tablet) 25 mg PO BID [facility]; Protocol Last Admin: 12/02/22 07:47 Dose: 25 mg Documented By: JORGE ALBERTO Nystatin (Nystatin Powder 15 Gm Bottle) 1 appl TOPICAL TID [facility]; Protocol Last Admin: 12/02/22 07:48 Dose: 1 appl Documented By: JORGE ALBERTO Ondansetron HCl (Ondansetron Hcl 4 Mg/2 Ml Vial) 4 mg IVPUSH Q8H PRN PRN Reason: Nausea and Vomiting Pharmacy Consult (Consult Rx Perform Med Rec) 1 each MISCELLANE ONCE PRN PRN Reason: Consult order Senna (Sennosides 8.6 Mg Tablet) 17.2 mg PO DAILY [facility] Last Admin: 12/02/22 07:47 Dose: 17.2 mg Documented By: JORGE ALBERTO Sevelamer Carbonate (Sevelamer Carbonate Tablet 800 Mg Tablet) 800 mg PO TID [facility] Last Admin: 12/02/22 07:46 Dose: 800 mg Documented By: JORGE ALBERTO Sodium Chloride (0.9 % Sodium Chloride Flush 3 Ml Syringe) 3 ml IVFLUSH QSHIFT [facility] Last Admin: 12/02/22 07:48 Dose: 3 ml Documented By: JORGE ALBERTO Tiotropium [place] (Tiotropium [place] 18 Mcg Cap.W.Dev) 1 puff INHALE RDAILY [facility] Last Admin: 12/02/22 08:04 Dose: Not Given Documented By: WILLIAM Non-Admin Reason: Med Not Available Vitamin D (Cholecalciferol (Vitamin D3) 25 Mcg Tablet) 25 mcg PO DAILY [facility] Last Admin: 12/02/22 07:46 Dose: 25 mcg Documented By: JORGE ALBERTO Labs 11/28/22 07:28 11/30/22 05:36 Labs: Laboratory Results - last 24 hr 12/01/22 12/01/22 12/01/22 11:20 14:57 15:00 POC Glucose 97 101 COVID-19 ([facility]) Negative COVID-19 Clin Com See Note 12/01/22 12/01/22 12/02/22 18:51 20:25 07:25 POC Glucose 76 167 H 77 COVID-19 ([facility]) COVID-19 Clin Com 12/02/22 11:10 POC Glucose 176 H COVID-19 ([facility]) COVID-19 Clin Com Assessment and Plan (1) Acidosis: Status: Acute (2) Hyperkalemia: Status: Acute (3) ESRD on hemodialysis: Status: Acute Plan This is a 72-year-old female with pertinent history of ESRD on hemodialysis, essential hypertension, COPD, insulin-dependent diabetes mellitus, atrial fibrillation on Eliquis, mood disorder presents to the emergency department after her dialysis catheter fell out. 1. Encounter for replacement of dialysis catheter Permacath placed by IR; HD done Oozing blood around the Cath, discussed with IR: Hold on Eliquis and give DDAVP continue to hold Eliquis HD per nephrology 2.Hyperkalemia improved after HD follow renals/divalents 3.ESRD on HD MWF schedule continue calcitriol and sevelamer Nephro following 4.Essential hypertension acceptable control on current therapies adjust as indicated 5.Atrial fibrillation rate control adequate continue to hold Eliquis depending tunneled catheter placement 6.Insulin-dependent diabetes mellitus acceptable control on lispro correctional scale/basal insulin adjust as indicated Boots Full code Patient will require ongoing hospitalization pending resolution of Oozing blood from permacath site. Cannot be discharge with temporary line Time Spent With Patient Time: Total time managing care of this patient today ____ minutes. Quality Stroke Does the patient have a stroke diagnosis?: No VTE Prior VTE?: No VTE Risk Level:: Medical - moderate - high VTE Device Contraindication: N/A - Device Ordered VTE Drug Contraindication: Treatment Not Indicated
[2022-12-02] MEDS: Desmopressin Acetate 20 MCG in 0.9 % Sodium Chloride 50 ML 100 MCG IV (11:35)
[2022-12-02] MEDS: Insulin Lispro 100 UNIT/ML 3 ML VIAL SUBCUT ×2 (12:48→22:04)
--- NOTE | 2022-12-02 13:47 | MHC.CM.PN ---
PORT IS STILL OOZING PER [facility] [employer] PLAN IS HOME TO AL FACILITY BY WEDNESDAY
[2022-12-02 16:32] LABS: Glucose, Whole Blood 142 mg/dL (60-115)
[2022-12-02 20:43] LABS: Glucose, Whole Blood 178 mg/dL (60-115)
--- NOTE | 2022-12-02 21:04 | PC.NURSE ---
unable to obtain IV access ,Dr. Murillo notified
[2022-12-02] MEDS: Insulin Glargine,Hum.rec.anlog 100 UNIT/ML 10 ML VIAL 15 UNIT SUBCUT (22:04)
[2022-12-03] VITALS: BP 145/65; PULSE 86; RESP 17; TEMP 36.3; O2SAT 95
[2022-12-03 06:18] LABS: Hematocrit 31.6 % (37.0-47.0); Hemoglobin 10.2 g/dl (12.0-16.0); Mean Corpuscular HGB Conc 32.3 g/dl (31.0-35.0); Mean Corpuscular Hemoglobin 29.8 pg (27.0-33.0); Mean Corpuscular Volume 92.4 fL (80.0-98.0); Mean Platelet Volume 10.4 fL (9.4-12.3); Platelet Count 186 X10*3/uL (160-400); Red Blood Count 3.42 X10*6/uL (4.20-5.50); Red Cell Distribution Width 15.7 % (11.0-16.0); White Blood Count 8.3 X10*3/uL (4.8-10.8)
[2022-12-03 06:53] LABS: Anion Gap 15 (12-20); Blood Urea Nitrogen 44 mg/dL (9-16); Calcium 9.8 mg/dL (8.4-10.2); Carbon Dioxide 21 mmol/L (22-29); Chloride 102 mmol/L (96-108); Creatinine Clr Calc Pharmacy 12.4; Estimated Glomerular Filt Rate 11; Glucose Random 130 mg/dL (60-115); Potassium 4.6 mmol/L (3.3-5.1); Sodium 133 mmol/L (135-145)
[2022-12-03 07:42] VITALS: BP 140/62; PULSE 62; RESP 18; TEMP 36.6; O2SAT 99
[2022-12-03 07:49] LABS: Glucose, Whole Blood 126 mg/dL (60-115)
[2022-12-03] MEDS: Albuterol/Iprat 2.5/0.5MG 3 ML AMPUL.NEB INHALE (07:54)
[2022-12-03 07:55] VITALS: RESP 18; O2SAT 96
[2022-12-03] MEDS: Fluticasone/Vilanterol 200/25 BLST.W.DEV 1 PUFF INHALE (07:55)
--- NOTE | 2022-12-03 10:47 | PM.PNNEP ---
Subjective Subjective Date of Service: 12/03/22 Interval history: Seen during HD Feels better overall PERMA cath placed, tolerated HD but having Oozing of blood around it No further bleeding Physical Exam Vital Signs: Vital Signs: Last Vital Signs Temp 97.8 F 12/03/22 07:42 Pulse 62 12/03/22 07:42 Resp 18 12/03/22 07:55 BP 140/62 H 12/03/22 07:42 Pulse Ox 99 12/03/22 07:42 O2 Del Method Room Air 12/03/22 07:42 O2 Flow Rate 1 12/01/22 05:19 BMI result Body Mass Index 34.7 Const: Other: Overweight, alert, oriented and appropriate In no distress HEENT: Other: dark circles under eyes Chest: Other: Inspiratory wheezes without rales Cardio: Other: Irreg rhythm, no murmur Jugular venous distension: JVD Extrem: Other: bilateral 1 plus pretib pitting edema Objective Data Labs 12/03/22 06:00 12/03/22 06:00 Labs: Laboratory Results - last 24 hr 12/02/22 12/02/22 12/02/22 11:10 16:28 20:40 WBC RBC Hgb Hct MCV MCH MCHC RDW Plt Count MPV Absolute Nucleated RBC Nucleated RBC % (auto) Sodium Potassium Chloride Carbon Dioxide Anion Gap BUN Creatinine Estim Creat Clear Calc Estimated GFR POC Glucose 176 H 142 H 178 H Random Glucose Calcium 12/03/22 12/03/22 12/03/22 06:00 06:00 07:43 WBC 8.3 RBC 3.42 L Hgb 10.2 L Hct 31.6 L MCV 92.4 MCH 29.8 MCHC 32.3 RDW 15.7 Plt Count 186 D MPV 10.4 Absolute Nucleated RBC 0.000 Nucleated RBC % (auto) 0.0 Sodium 133 L Potassium 4.6 Chloride 102 Carbon Dioxide 21 L Anion Gap 15 BUN 44 H Creatinine 4.04 H* Estim Creat Clear Calc 12.4 Estimated GFR 11 POC Glucose 126 H Random Glucose 130 H Calcium 9.8 D Procedures Date of Service Date of Service: 12/03/22 Assessment & Plan Assessment and plan (1) ESRD on hemodialysis: Status: Acute (2) Hyperkalemia: Status: Acute (3) Acidosis: Status: Acute Plan ESRD No signs or symptoms of uremia. s/p placement of new permcath and dialysis OK to be discharged Will resume out pt HD 3 x week Low K diet, fluid restrict Time Spent With Patient Time: Total time managing care of this patient today ____ minutes. Progress Note: Quality Stroke Does the patient have a stroke diagnosis?: No
--- NOTE | 2022-12-03 11:40 | MHC.CM.PN ---
Addendum entered by Jeanie Mitchell RN 12/03/22 11:46: PER PAT AT [facility] ([phone]), PATIENT WILL HAVE TRANSPORTATION ARRANGED Original Note: PLAN IS FOR RETURN TO [facility] TODAY T/W TO CONTACT FACILITY TO ARRANGE FOR TRANSPORT IMM 12/03 IN CHART
[2022-12-03 15:25] VITALS: BP 140/80; PULSE 67; RESP 16; TEMP 36.8; O2SAT 97
[2022-12-03] MEDS: hydrALAZINE HCl 50 MG TABLET PO (15:31)
[2022-12-03] MEDS: Sevelamer Carbonate Tablet 800 MG TABLET PO (15:32)
== END 2022-12-03 17:08 | disposition home or self-care (01) | DRG 673 ==
LOC: HO.ED 19:53 → HO.EDOVER 20:03 → HO.S3 11-28 02:14
PROVIDERS: Hospitalist; Physician Assistant Medical; Radiology Diagnostic Radiology; Admitting Provider Student in an Organized Health Care Education/Training Program; Emergency Provider Emergency Medicine; PCP Family Medicine; Visit Provider Student in an Organized Health Care Education/Training Program
PROC: 0JH63XZ Insertion of Tunneled Vascular Access Device into Chest Subcutaneous Tissue and Fascia, Percutaneous Approach (ICD-10-PCS; principal; 2022-12-01 10:20)
DX: T82.42XA Displacement of vascular dialysis catheter, initial encounter (principal); N18.6 End stage renal disease; I12.0 Hypertensive chronic kidney disease with stage 5 chronic kidney disease or end stage renal disease; N25.81 Secondary hyperparathyroidism of renal origin; E87.21 Acute metabolic acidosis; I48.19 Other persistent atrial fibrillation; E87.5 Hyperkalemia; E11.22 Type 2 diabetes mellitus with diabetic chronic kidney disease; D63.1 Anemia in chronic kidney disease; T82.838A Hemorrhage due to vascular prosthetic devices, implants and grafts, initial encounter; J44.9 Chronic obstructive pulmonary disease, unspecified; Z99.2 Dependence on renal dialysis; Z87.891 Personal history of nicotine dependence; Z91.158 Patient's noncompliance with renal dialysis for other reason; Z79.4 Long term (current) use of insulin; Z79.01 Long term (current) use of anticoagulants; Z79.51 Long term (current) use of inhaled steroids; Z79.899 Other long term (current) drug therapy
CPT/HCPCS: 36415; 36556; 36581; 71046; 76937; 80048; 80053; 82947; 83735; 85025; 85027; 85610; 85730; 87635; 90999; 94640; 97162; 99152; 99285; C1769; J0613; J1940; J2597